=== PATIENT | female | born 1975 | race Caucasian/White ===

== ENCOUNTER 2021-04-30 09:32 | Outpatient (REF) | payer MEDICARE, OTHER, SELFPAY ==
[2021-04-30 10:49] LABS: Appearance Urine HAZY; Color Urine STRAW; Glucose Urine UA NEG (NEG); Leukocyte Esterase Urine NEG (NEG); Nitrite Urine NEG (NEG); PH 6.5 (5.0-8.0); Urine Blood NEG (NEG); Urine Ketones NEG (NEG); Urine Protein NEG (NEG-TRACE)
[2021-04-30 11:01] LABS: Lithium 0.55 mmol/L (0.60-1.20)
[2021-04-30 11:43] LABS: Anion Gap 11 (12-20); Blood Urea Nitrogen 9 mg/dL (9-16); Calcium 9.9 mg/dL (8.4-10.2); Carbon Dioxide 20 mmol/L (22-29); Chloride 115 mmol/L (96-108); Estimated Glomerular Filt Rate > 60; Glucose Random 84 mg/dL (60-115); Potassium 4.7 mmol/L (3.3-5.1); Sodium 141 mmol/L (135-145)
[2021-04-30 11:51] LABS: Thyroid Stimulating Hormone 2.09 uIU/mL (0.32-4.0)
== END 2021-04-30 09:33 | disposition home or self-care (01) ==
LOC: HO.LAB 09:32
PROVIDERS: PCP Internal Medicine; Visit Provider Psychiatry & Neurology Psychiatry
DX: F31.30 Bipolar disorder, current episode depressed, mild or moderate severity, unspecified (principal); Z79.899 Other long term (current) drug therapy
CPT/HCPCS: 36415; 80048; 80178; 81003; 84443

== ENCOUNTER 2021-06-07 15:52 | Inpatient (IN) | payer MEDICARE, OTHER, SELFPAY ==
[2021-06-07 16:09] VITALS: BP 146/84; PULSE 84; RESP 18; TEMP 36.6; O2SAT 98; BMI 26.4
--- NOTE | 2021-06-07 16:52 | ED.PSYCH ---
HPI - Psych General Chief Complaint: Psychiatric Symptoms Stated Complaint: bi polar/crisis Time Seen by Provider: 06/07/21 18:58 Source: patient Mode of arrival: ambulatory Limitations: no limitations History of Present Illness HPI Narrative: 45-year-old female presents for crisis evaluation. States that she feels her bipolar disorder is out of control. She has been taking her medications, but the intrusive thoughts and suicidal ideation is scaring her. She does belong to partial program, partial program referred her to the emergency department. MD complaint: suicidal ideation, feels depressed and anxiety Onset (ago): day(s) Duration: constant History of same: Yes Relieving factors: none Associated psychiatric symptoms: depression, suicidal ideation and racing thoughts Associated symptoms: nausea Treatments prior to arrival: none If self harm: admits thoughts of self harm and has plan Related Data Home Medications Medication Instructions Recorded Confirmed clonazepam 0.5 mg tablet 1 tab PO BID PRN 06/07/21 06/07/21 lamotrigine 200 mg tablet 1 tab PO BID 06/07/21 06/07/21 lithium carbonate 300 mg 2 tab PO BID 06/07/21 06/07/21 tablet,extended release meclizine 25 mg tablet 1 - 2 tab PO TID PRN 06/07/21 06/07/21 risperidone 1 mg tablet 1 tab PO BEDTIME 06/07/21 06/07/21 Allergies Allergy/AdvReac Type Severity Reaction Status Date / Time No Known Allergies Allergy Verified 06/07/21 16:53 Review of Systems Review of Systems: Constitutional: No Fever, No Chills ENT/Mouth: No Ear Pain, No Nasal Congestion, No sore throat Eyes: No Eye Pain, No Swelling, No Redness Cardiovascular: No Chest Pain, No SOB Respiratory: No Cough, No Sputum, No Dyspnea Gastrointestinal: Positive Nausea, No Vomiting, No Diarrhea, No Hematochezia, No Melena Genitourinary: No Dysuria, No Urinary Frequency, No Hematuria Musculoskeletal: No Myalgias Skin: No Skin Lesions, No rash Neuro: No Weakness, No Numbness, No Paresthesias, No Dizziness, No Headache Psych: positive Anxiety, positive Depression, positive SI Heme/Lymph: No Lymphadenopathy Endocrine: No Polyuria, No Polydipsia Yes all other systems are reviewed and are negative PMFSH Past Medical History Attestation statement: The following information was validated with the patient. Source: old records reviewed Medical History Bipolar 1 disorder Social History Social History Advance Directives: No Advance Directives Information Provided: No Healthcare Proxy: No Guardian: No Physical Exam Vital Signs: Vital Signs: Last Vital Signs Temp 97.8 F 06/07/21 16:09 Pulse 84 06/07/21 16:09 Resp 18 06/07/21 16:09 BP 146/84 H 06/07/21 16:09 Pulse Ox 98 06/07/21 16:09 BMI result Body Mass Index 26.4 Appearance: Alert. Oriented X3. Moderate psychiatric distress. Eyes: Pupils equal, round and reactive to light. Sclera nonicteric. ENT: Pharynx normal. Moist mucous membranes. Neck: Normal inspection. Neck supple. CVS: Normal heart rate and rhythm. Pulses normal. Respiratory: No respiratory distress. Breath sounds normal. Abdomen: Soft and nontender. Skin: Skin warm and dry. Normal skin color. Normal skin turgor. Extremities: Gait well-balanced well coordinated. Neuro: No motor deficit. No sensory deficit. Cranial nerves 2-12 intact. Course Course Course Narrative: 45-year-old female presents for suicidal ideation, manic behavior, intrusive suicidal thoughts, hypersexuality, impulsive purchasing. Patient states that she is afraid of herself and what she might do. She did discuss her feelings and thoughts with outpatient partial program and was referred to the emergency department evaluation. Will order crisis consult, labs, and COVID testing. Patient did state that her lithium has been titrated down because of dizziness. She did have an MRI last week which was negative for acute findings with the exception of an aneurysm. 18:33 care team consult complete. Plan is for voluntary admission. Patient is medically cleared. Physician observation started at this time. MDM - Psych Differential Diagnosis Differential diagnosis: Likely acute psychosis, suicidal ideation, bipolar disorder, depression, drug-induced psychotic disorder, acute anxiety, post-traumatic stress disorder and mood disorder Medical Records Attestation: I reviewed the patient's medical records. Lab Data Attestation: I reviewed the patient's lab results. Result diagrams: 06/07/21 17:39 04/26/22 17:39 Labs: Lab Results 06/07/21 06/07/21 06/07/21 Range/Units 17:28 17:28 17:28 WBC (4.8-10.8) X10*3/uL RBC (4.20-5.50) X10*6/uL Hgb (12.0-16.0) g/dl Hct (37.0-47.0) % MCV (80.0-98.0) fL MCH (27.0-33.0) pg MCHC (31.0-35.0) g/dl RDW (11.0-16.0) % Plt Count (160-400) X10*3/uL MPV (9.4-12.3) fL Immature Gran % (Auto) (0.0-0.4) % Neut % (Auto) (45-73) % Lymph % (Auto) (20-40) % [place] % (Auto) (2-11) % Eos % (Auto) (0-4) % Baso % (Auto) (0-2) % Lymph # (Auto) (1.2-4.9) X10*3/uL [place] # (Auto) (0.1-1.2) X10*3/uL Eos # (Auto) (0.0-0.4) X10*3/uL Baso # (Auto) (0.0-0.2) X10*3/uL Abs Immat Gran (auto) (0.00-0.03) X10*3/uL Absolute Neuts (auto) (2.0-8.3) x10*3/uL Absolute Nucleated RBC (0.0-0.012) X10*3/uL Nucleated RBC % (auto) (0.0-0.2) /100WBC Sodium (135-145) mmol/L Potassium (3.3-5.1) mmol/L Chloride (96-108) mmol/L Carbon Dioxide (22-29) mmol/L Anion Gap (12-20) BUN (9-16) mg/dL Creatinine (0.5-1.4) mg/dL Estim Creat Clear Calc Estimated GFR Random Glucose (60-115) mg/dL Calcium (8.4-10.2) mg/dL Total Bilirubin (0.0-1.0) mg/dL AST (5-31) U/L ALT (0-31) U/L Alkaline Phosphatase (39-117) U/L Total Protein (6.5-8.0) g/dL Albumin (3.5-5.0) g/dL Urine Color YELLOW Urine Appearance CLEAR Urine pH 6.0 (5.0-8.0) Ur Specific [place] 1.015 (1.005-1.025) Urine Protein NEG (NEG-TRACE) MG/DL Urine Glucose (UA) NEG (NEG) MG/DL Urine Ketones NEG (NEG) MG/DL Urine Blood NEG (NEG) Urine Nitrite NEG (NEG) Ur Leukocyte Esterase NEG (NEG) Urine Opiates Screen Not Detected (Not Detect) Urine Fentanyl Screen Not Detected (Not Detect) Ur Barbiturates Screen Not Detected (Not Detect) Ur Phencyclidine Scrn Not Detected (Not Detect) Ur Amphetamines Screen Not Detected (Not Detect) U Benzodiazepines Scrn Not Detected (Not Detect) [place] (0.60-1.20) mmol/L Urine Cocaine Screen Not Detected (Not Detect) U Marijuana (THC) Screen Not Detected (Not Detect) Ethyl Alcohol mg/dL COVID-19 (CAR) Negative (Negative) COVID-19 Clin Com See Note 06/07/21 06/07/21 06/07/21 Range/Units 17:39 17:39 17:39 WBC 8.7 (4.8-10.8) X10*3/uL RBC 4.59 (4.20-5.50) X10*6/uL Hgb 12.9 (12.0-16.0) g/dl Hct 40.6 (37.0-47.0) % MCV 88.5 (80.0-98.0) fL MCH 28.1 (27.0-33.0) pg MCHC 31.8 (31.0-35.0) g/dl RDW 13.5 (11.0-16.0) % Plt Count 300 (160-400) X10*3/uL MPV 10.0 (9.4-12.3) fL Immature Gran % (Auto) 0.3 (0.0-0.4) % Neut % (Auto) 64.9 (45-73) % Lymph % (Auto) 24.1 (20-40) % [place] % (Auto) 7.5 (2-11) % Eos % (Auto) 2.3 (0-4) % Baso % (Auto) 0.9 (0-2) % Lymph # (Auto) 2.1 (1.2-4.9) X10*3/uL [place] # (Auto) 0.7 (0.1-1.2) X10*3/uL Eos # (Auto) 0.2 (0.0-0.4) X10*3/uL Baso # (Auto) 0.1 (0.0-0.2) X10*3/uL Abs Immat Gran (auto) 0.03 (0.00-0.03) X10*3/uL Absolute Neuts (auto) 5.6 (2.0-8.3) x10*3/uL Absolute Nucleated RBC 0.000 (0.0-0.012) X10*3/uL Nucleated RBC % (auto) 0.0 (0.0-0.2) /100WBC Sodium 139 (135-145) mmol/L Potassium 4.3 (3.3-5.1) mmol/L Chloride 114 H (96-108) mmol/L Carbon Dioxide 19 L (22-29) mmol/L Anion Gap 10 L (12-20) BUN 12 (9-16) mg/dL Creatinine 0.85 (0.5-1.4) mg/dL Estim Creat Clear Calc 81.3 Estimated GFR > 60 Random Glucose 110 (60-115) mg/dL Calcium 9.5 (8.4-10.2) mg/dL Total Bilirubin 0.2 (0.0-1.0) mg/dL AST 14 (5-31) U/L ALT 10 (0-31) U/L Alkaline Phosphatase 57 (39-117) U/L Total Protein 6.6 (6.5-8.0) g/dL Albumin 3.9 (3.5-5.0) g/dL Urine Color Urine Appearance Urine pH (5.0-8.0) Ur Specific [place] (1.005-1.025) Urine Protein (NEG-TRACE) MG/DL Urine Glucose (UA) (NEG) MG/DL Urine Ketones (NEG) MG/DL Urine Blood (NEG) Urine Nitrite (NEG) Ur Leukocyte Esterase (NEG) Urine Opiates Screen (Not Detect) Urine Fentanyl Screen (Not Detect) Ur Barbiturates Screen (Not Detect) Ur Phencyclidine Scrn (Not Detect) Ur Amphetamines Screen (Not Detect) U Benzodiazepines Scrn (Not Detect) [place] 0.25 L (0.60-1.20) mmol/L Urine Cocaine Screen (Not Detect) U Marijuana (THC) Screen (Not Detect) Ethyl Alcohol mg/dL COVID-19 (CAR) (Negative) COVID-19 Clin Com 06/07/21 Range/Units 17:39 WBC (4.8-10.8) X10*3/uL RBC (4.20-5.50) X10*6/uL Hgb (12.0-16.0) g/dl Hct (37.0-47.0) % MCV (80.0-98.0) fL MCH (27.0-33.0) pg MCHC (31.0-35.0) g/dl RDW (11.0-16.0) % Plt Count (160-400) X10*3/uL MPV (9.4-12.3) fL Immature Gran % (Auto) (0.0-0.4) % Neut % (Auto) (45-73) % Lymph % (Auto) (20-40) % [place] % (Auto) (2-11) % Eos % (Auto) (0-4) % Baso % (Auto) (0-2) % Lymph # (Auto) (1.2-4.9) X10*3/uL [place] # (Auto) (0.1-1.2) X10*3/uL Eos # (Auto) (0.0-0.4) X10*3/uL Baso # (Auto) (0.0-0.2) X10*3/uL Abs Immat Gran (auto) (0.00-0.03) X10*3/uL Absolute Neuts (auto) (2.0-8.3) x10*3/uL Absolute Nucleated RBC (0.0-0.012) X10*3/uL Nucleated RBC % (auto) (0.0-0.2) /100WBC Sodium (135-145) mmol/L Potassium (3.3-5.1) mmol/L Chloride (96-108) mmol/L Carbon Dioxide (22-29) mmol/L Anion Gap (12-20) BUN (9-16) mg/dL Creatinine (0.5-1.4) mg/dL Estim Creat Clear Calc Estimated GFR Random Glucose (60-115) mg/dL Calcium (8.4-10.2) mg/dL Total Bilirubin (0.0-1.0) mg/dL AST (5-31) U/L ALT (0-31) U/L Alkaline Phosphatase (39-117) U/L Total Protein (6.5-8.0) g/dL Albumin (3.5-5.0) g/dL Urine Color Urine Appearance Urine pH (5.0-8.0) Ur Specific [place] (1.005-1.025) Urine Protein (NEG-TRACE) MG/DL Urine Glucose (UA) (NEG) MG/DL Urine Ketones (NEG) MG/DL Urine Blood (NEG) Urine Nitrite (NEG) Ur Leukocyte Esterase (NEG) Urine Opiates Screen (Not Detect) Urine Fentanyl Screen (Not Detect) Ur Barbiturates Screen (Not Detect) Ur Phencyclidine Scrn (Not Detect) Ur Amphetamines Screen (Not Detect) U Benzodiazepines Scrn (Not Detect) [place] (0.60-1.20) mmol/L Urine Cocaine Screen (Not Detect) U Marijuana (THC) Screen (Not Detect) Ethyl Alcohol < 10 mg/dL COVID-19 (CAR) (Negative) COVID-19 Clin Com Discharge Plan Discharge Clinical Impression: Acute psychosis, Bipolar disorder Patient Disposition: Still a Patient Prescriptions: No Action lamotrigine 200 mg tablet 1 tab PO BID 0RF lithium carbonate 300 mg tablet extended release 2 tab PO BID 0RF clonazepam 0.5 mg tablet 1 tab PO BID PRN (Reason: Anxiety) 0RF meclizine 25 mg tablet 1 - 2 tab PO TID PRN (Reason: Dizziness Or Vertigo) 0RF risperidone 1 mg tablet 1 tab PO BEDTIME 0RF
[2021-06-07] MEDS: LORazepam 1 MG TABLET PO (17:31)
[2021-06-07 17:43] LABS: MANUAL DIFF FLAG NO
[2021-06-07 17:45] LABS: Basophils Absolute Auto 0.1 X10*3/uL (0.0-0.2); Basophils Percent Auto 0.9 % (0-2); Eosinophils Absolute Auto 0.2 X10*3/uL (0.0-0.4); Eosinophils Percent Auto 2.3 % (0-4); Hematocrit 40.6 % (37.0-47.0); Hemoglobin 12.9 g/dl (12.0-16.0); Imm Gran Abs Auto 0.03 X10*3/uL (0.00-0.03); Imm Gran Pct Auto 0.3 % (0.0-0.4); Lymphocytes Absolute Auto 2.1 X10*3/uL (1.2-4.9); Lymphocytes Percent Auto 24.1 % (20-40); Mean Corpuscular HGB Conc 31.8 g/dl (31.0-35.0); Mean Corpuscular Hemoglobin 28.1 pg (27.0-33.0); Mean Corpuscular Volume 88.5 fL (80.0-98.0); Monocytes Absolute Auto 0.7 X10*3/uL (0.1-1.2); Monocytes Percent Auto 7.5 % (2-11); Neutrophils Absolute Auto 5.6 x10*3/uL (2.0-8.3); Neutrophils Percent Auto 64.9 % (45-73); Platelet Count 300 X10*3/uL (160-400); Red Blood Count 4.59 X10*6/uL (4.20-5.50); Red Cell Distribution Width 13.5 % (11.0-16.0); White Blood Count 8.7 X10*3/uL (4.8-10.8)
[2021-06-07 17:52] LABS: Lithium 0.25 mmol/L (0.60-1.20)
[2021-06-07 17:52] LABS: Amphetamine Screen Urine Not Detected (Not Detect); Appearance Urine CLEAR; Barbiturates, Urine Not Detected (Not Detect); Benzodiazepines Screen Urine Not Detected (Not Detect); Cannabinoid Screen Urine Not Detected (Not Detect); Cocaine Screen Urine Not Detected (Not Detect); Color Urine YELLOW; Fentanyl, urine Not Detected (Not Detect); Glucose Urine UA NEG (NEG); Leukocyte Esterase Urine NEG (NEG); Nitrite Urine NEG (NEG); Opiate Screen Urine Not Detected (Not Detect); Phencyclidine Screen Urine Not Detected (Not Detect); Specific Gravity - Urine 1.015 (1.005-1.025); Urine Blood NEG (NEG); Urine Ketones NEG (NEG); Urine Protein NEG (NEG-TRACE)
[2021-06-07 17:56] LABS: COVID-19 Test Negative (Negative)
[2021-06-07 17:56] LABS: Ethanol < 10 mg/dL
[2021-06-07 18:00] LABS: Alanine Aminotransferase 10 U/L (0-31); Albumin Level 3.9 g/dL (3.5-5.0); Alkaline Phosphatase 57 U/L (39-117); Anion Gap 10 (12-20); Aspartate Amino Transferase 14 U/L (5-31); Bilirubin Total 0.2 mg/dL (0.0-1.0); Blood Urea Nitrogen 12 mg/dL (9-16); Calcium 9.5 mg/dL (8.4-10.2); Carbon Dioxide 19 mmol/L (22-29); Chloride 114 mmol/L (96-108); Creatinine Clr Calc Pharmacy 81.3; Estimated Glomerular Filt Rate > 60; Glucose Random 110 mg/dL (60-115); Potassium 4.3 mmol/L (3.3-5.1); Sodium 139 mmol/L (135-145); Total Protein 6.6 g/dL (6.5-8.0)
--- NOTE | 2021-06-07 21:08 | MHC.CARE ---
CARE team evaluated pt, dispo for inpt psychiatric admission, pt will be admitted to on 06/08
[2021-06-07] MEDS: clonazePAM 0.5 MG TABLET PO (22:38)
[2021-06-07] MEDS: Lithium Carbonate ER 300 MG TABLET.ER 600 MG PO (22:39)
[2021-06-07] MEDS: risperiDONE 1 MG TABLET PO (22:39)
[2021-06-07] MEDS: lamoTRIgine 100 MG TABLET 200 MG PO (22:39)
[2021-06-08 05:50] VITALS: BP 106/64; PULSE 60; RESP 20; TEMP 36.6; O2SAT 95
--- NOTE | 2021-06-08 06:40 | PC.NURSE ---
Patient slept through the night, no distress observe/reported, behavior pleasant, medication compliant except refused partial dose of lithium and Lamictal, disposition per [facility] is voluntary inpatient bed search, VSS, will continue to monitor.
--- NOTE | 2021-06-08 07:00 | PC.NURSE ---
patient appears to remain asleep respirations are even and unlabored patient appears in no distress
[2021-06-08] MEDS: lamoTRIgine 100 MG TABLET 200 MG PO ×2 (09:09→20:21)
--- NOTE | 2021-06-08 10:53 | PHA.MEDREC ---
Pharmacy Consult ? Medication Reconciliation Pharmacy has completed the medication reconciliation. No remarkable issues. Velia Mcadams, TurnerD
--- NOTE | 2021-06-08 11:29 | MHC.CARE ---
CARE team called [employer] insurance for auth. Approved 6 days starting today with last covered day 06/13/21 review with Janee on 06/13 at [id number] with auth [id number]. CARE presented pt with CV and she signed in seeking placement on voluntary basis. Plan is for pt to be admitted to .
--- NOTE | 2021-06-08 15:40 | PC.NURSE ---
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
[2021-06-08 16:07] VITALS: BP 113/76; PULSE 99; RESP 18; TEMP 37.2; O2SAT 100
[2021-06-08 17:32] VITALS: BP 125/84; PULSE 72; RESP 16; TEMP 37.6; O2SAT 99; BMI 26.1
[2021-06-08 18:00] VITALS: BP 125/84; PULSE 72; RESP 16; TEMP 37.6; O2SAT 99
[2021-06-08 18:25] LABS: Urine Pregnancy NEGATIVE (NEGATIVE)
[2021-06-08 18:26] LABS: UPreg QC Valid YES
--- NOTE | 2021-06-08 18:30 | PC.ADMIT ---
Pt is a 45y/o female admitted on CV for SI. Pt reports feeling intrusive suicidal thoughts and therefore afraid something bad might happen. She endorses suicidal ideation without a specific plan, disrupted sleep and appetite, hyper-sexuality, and impulse spending. Pt is alert and oriented X4, VSS, Covid negative, Tox screen negative. Pt enorsed depression with dysthymic mood and congruent affect. Speech is slightly pressured. Pt has hx of 1 suicide attempt, 1 manic episode, 4 inpt psych admit, and 4 rounds of PHP. She has outpt providers and has been undergoing med changes since July 2020 after developing tardive dyskenesia.
[2021-06-08] MEDS: risperiDONE 1 MG TABLET PO (20:21)
[2021-06-08] MEDS: Topiramate 25 MG TABLET 150 MG PO (20:21)
[2021-06-08] MEDS: Lithium Carbonate ER 300 MG TABLET.ER 600 MG PO (20:21)
[2021-06-08] MEDS: clonazePAM 0.5 MG TABLET PO (20:40)
--- NOTE | 2021-06-09 | ECG_ITS ---
Test Reason : MEDICATION CLEARANCE Blood Pressure : / mmHG Vent. Rate : 080 BPM Atrial Rate : 080 BPM P-R Int : 164 ms QRS Dur : 092 ms QT Int : 380 ms P-R-T Axes : 053 025 036 degrees QTc Int : 438 ms Normal sinus rhythm Nonspecific T wave abnormality Abnormal ECG No previous ECGs available Referred By: Maricruz Fatima Electronically Signed By:VERO BURKETT
[2021-06-09 06:00] VITALS: BP 113/73; PULSE 54; RESP 15; TEMP 37.1; O2SAT 100
[2021-06-09 09:12] LABS: Estimated Average Glucose 91 mg/dL; Hemoglobin A1c % 4.8 %
[2021-06-09] MEDS: Topiramate 25 MG TABLET 150 MG PO ×2 (09:26→20:44)
[2021-06-09] MEDS: lamoTRIgine 100 MG TABLET 200 MG PO ×2 (09:26→20:44)
[2021-06-09] MEDS: Lithium Carbonate ER 300 MG TABLET.ER 600 MG PO (09:26)
[2021-06-09 10:19] LABS: Cholesterol 230 mg/dL; HDL Cholesterol 56 mg/dL; LDL Cholesterol Calculated 151 mg/dl; Triglycerides 118 mg/dL
--- NOTE | 2021-06-09 11:04 | HO.PSYADMNOT ---
HPI Date of Service: 06/09/21 Chief Complaint: mansi Sources of Information: patient interviewed, chart reviewed and crisis/core team assessment reviewed HPI Subjective Notes: Conditional Voluntary Narrative: Ms. Bourgeois is a 45 year-old woman with hx of Bipolar. She was referred by PHP due to increase SI, depressed mood in the past 2 weeks. Mrs. Bourgeois reports she had been fairly stable on geodon but experience TD, which was slowly tappered off. She started lithium back in July of 2020. She reports sporadic episodes of lithium which she suspect could be related to lithium given that she has had work up by PCP. She has been on combination of lamictal and topamax (this one moslty for migraines). In the ED utox is negative. On the unit. Ms. Bourgeois reports that around mid February of this year she started having more manic symptoms- overspending, hypersexuality (which she reports significant problem for her when manic), decreased need for sleep, irritability. These symptoms have now resolved but pt then experienced depressed mood, suicidal ideation. Pt is worried about medication changes as she does not want to experience TD again. She also worries about weight gain. She reports weight gained of 20 Lbs with lithium. No VH/AH. No overt delusional content reported. Past Psychiatric History: Inpt: 4 prior OP: Dr. Wheeler at [facility] Past med trials: geodon (TD), topamax, lamictal, lithium, abilify (akathisia), latuda (increase SI) Medical Evaluation Reviewed: Yes [facility] Medical History Bipolar 1 disorder Family History: mother depression Social History: lives alone. She has graduate degree in communication. 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 Has 2 sons, youngest living with his father. Substance History: none Diagnostics Vital Signs (24Hr): Vital Signs - 24 hr 06/08/21 16:07 06/08/21 17:32 06/08/21 18:00 Temperature 99 F 99.6 F 99.6 F Pulse Rate 99 72 72 Respiratory Rate 18 16 16 Blood Pressure 113/76 125/84 125/84 Pulse Oximetry 100 99 99 06/09/21 06:00 Temperature 98.7 F Pulse Rate 54 Respiratory Rate 15 Blood Pressure 113/73 Pulse Oximetry 100 BMI result Body Mass Index 26.1 Labs Results: 06/07/21 17:39 06/07/21 17:39 Labs: Laboratory Results - last 48 hr 06/07/21 06/07/21 06/07/21 17:28 17:28 17:28 WBC RBC Hgb Hct MCV MCH MCHC RDW Plt Count MPV Immature Gran % (Auto) Neut % (Auto) Lymph % (Auto) [place] % (Auto) Eos % (Auto) Baso % (Auto) Lymph # (Auto) [place] # (Auto) Eos # (Auto) Baso # (Auto) Abs Immat Gran (auto) Absolute Neuts (auto) Absolute Nucleated RBC Nucleated RBC % (auto) Sodium Potassium Chloride Carbon Dioxide Anion Gap BUN Creatinine Estim Creat Clear Calc Estimated GFR Random Glucose Estimat Average Glucose Hemoglobin A1c % Calcium Total Bilirubin AST ALT Alkaline Phosphatase Total Protein Albumin Triglycerides Cholesterol LDL Cholesterol, Calc HDL Cholesterol TSH Urine Color YELLOW Urine Appearance CLEAR Urine pH 6.0 Ur Specific [place] 1.015 Urine Protein NEG Urine Glucose (UA) NEG Urine Ketones NEG Urine Blood NEG Urine Nitrite NEG Ur Leukocyte Esterase NEG Urine Test Urine Opiates Screen Not Detected Urine Fentanyl Screen Not Detected Ur Barbiturates Screen Not Detected Ur Phencyclidine Scrn Not Detected Ur Amphetamines Screen Not Detected U Benzodiazepines Scrn Not Detected [place] Urine Cocaine Screen Not Detected U Marijuana (THC) Screen Not Detected Ethyl Alcohol COVID-19 (CAR) Negative COVID-19 Clin Com See Note 06/07/21 06/07/21 06/07/21 17:39 17:39 17:39 WBC 8.7 RBC 4.59 Hgb 12.9 Hct 40.6 MCV 88.5 MCH 28.1 MCHC 31.8 RDW 13.5 Plt Count 300 MPV 10.0 Immature Gran % (Auto) 0.3 Neut % (Auto) 64.9 Lymph % (Auto) 24.1 [place] % (Auto) 7.5 Eos % (Auto) 2.3 Baso % (Auto) 0.9 Lymph # (Auto) 2.1 [place] # (Auto) 0.7 Eos # (Auto) 0.2 Baso # (Auto) 0.1 Abs Immat Gran (auto) 0.03 Absolute Neuts (auto) 5.6 Absolute Nucleated RBC 0.000 Nucleated RBC % (auto) 0.0 Sodium 139 Potassium 4.3 Chloride 114 H Carbon Dioxide 19 L Anion Gap 10 L BUN 12 Creatinine 0.85 Estim Creat Clear Calc 81.3 Estimated GFR > 60 Random Glucose 110 Estimat Average Glucose Hemoglobin A1c % Calcium 9.5 Total Bilirubin 0.2 AST 14 ALT 10 Alkaline Phosphatase 57 Total Protein 6.6 Albumin 3.9 Triglycerides Cholesterol LDL Cholesterol, Calc HDL Cholesterol TSH Urine Color Urine Appearance Urine pH Ur Specific [place] Urine Protein Urine Glucose (UA) Urine Ketones Urine Blood Urine Nitrite Ur Leukocyte Esterase Urine Test Urine Opiates Screen Urine Fentanyl Screen Ur Barbiturates Screen Ur Phencyclidine Scrn Ur Amphetamines Screen U Benzodiazepines Scrn [place] 0.25 L Urine Cocaine Screen U Marijuana (THC) Screen Ethyl Alcohol COVID-19 (CAR) COVID-19 [facility] 06/07/21 06/08/21 06/09/21 17:39 17:50 08:21 WBC RBC Hgb Hct MCV MCH MCHC RDW Plt Count MPV Immature Gran % (Auto) Neut % (Auto) Lymph % (Auto) [place] % (Auto) Eos % (Auto) Baso % (Auto) Lymph # (Auto) [place] # (Auto) Eos # (Auto) Baso # (Auto) Abs Immat Gran (auto) Absolute Neuts (auto) Absolute Nucleated RBC Nucleated RBC % (auto) Sodium Potassium Chloride Carbon Dioxide Anion Gap BUN Creatinine Estim Creat Clear Calc Estimated GFR Random Glucose Estimat Average Glucose 91 Hemoglobin A1c % 4.8 Calcium Total Bilirubin AST ALT Alkaline Phosphatase Total Protein Albumin Triglycerides Cholesterol LDL Cholesterol, Calc HDL Cholesterol TSH Urine Color Urine Appearance Urine pH Ur Specific [place] Urine Protein Urine Glucose (UA) Urine Ketones Urine Blood Urine Nitrite Ur Leukocyte Esterase Urine Test NEGATIVE Urine Opiates Screen Urine Fentanyl Screen Ur Barbiturates Screen Ur Phencyclidine Scrn Ur Amphetamines Screen U Benzodiazepines Scrn [place] Urine Cocaine Screen U Marijuana (THC) Screen Ethyl Alcohol < 10 COVID-19 (CAR) COVID-19 [facility] 06/09/21 08:21 WBC RBC Hgb Hct MCV MCH MCHC RDW Plt Count MPV Immature Gran % (Auto) Neut % (Auto) Lymph % (Auto) [place] % (Auto) Eos % (Auto) Baso % (Auto) Lymph # (Auto) [place] # (Auto) Eos # (Auto) Baso # (Auto) Abs Immat Gran (auto) Absolute Neuts (auto) Absolute Nucleated RBC Nucleated RBC % (auto) Sodium Potassium Chloride Carbon Dioxide Anion Gap BUN Creatinine Estim Creat Clear Calc Estimated GFR Random Glucose Estimat Average Glucose Hemoglobin A1c % Calcium Total Bilirubin AST ALT Alkaline Phosphatase Total Protein Albumin Triglycerides 118 Cholesterol 230 LDL Cholesterol, Calc 151 HDL Cholesterol 56 TSH 1.50 Urine Color Urine Appearance Urine pH Ur Specific [place] Urine Protein Urine Glucose (UA) Urine Ketones Urine Blood Urine Nitrite Ur Leukocyte Esterase Urine Test Urine Opiates Screen Urine Fentanyl Screen Ur Barbiturates Screen Ur Phencyclidine Scrn Ur Amphetamines Screen U Benzodiazepines Scrn [place] Urine Cocaine Screen U Marijuana (THC) Screen Ethyl Alcohol COVID-19 (CAR) COVID-19 Clin Com Meds/Allergies Meds Home Medications Acetaminophen (Acetaminophen 325 Mg Tablet) 650 mg PO Q6H PRN PRN Reason: Headache/Pain Mild Scale (1-3) Last Admin: 06/10/21 14:02 Dose: 650 mg Documented by: Al Hydroxide/Mg Hydroxide (Magnesium Hydrox/Alum Hydrox 30 Ml Oral.Susp) 30 ml PO Q6H PRN PRN Reason: Heartburn/Nausea Carbamazepine (Carbamazepine 200 Mg Tablet) 200 mg PO BID [facility] Last Admin: 06/12/21 20:20 Dose: 200 mg Documented by: Diphenhydramine HCl (Diphenhydramine Hcl 25 Mg Tablet) 50 mg PO Q4H PRN PRN Reason: agitation Hydroxyzine HCl (Hydroxyzine Hcl 25 Mg Tablet) 25 mg PO QID PRN PRN Reason: Anxiety Lamotrigine (Lamotrigine 100 Mg Tablet) 200 mg PO DAILY [facility] Last Admin: 06/12/21 08:24 Dose: 200 mg Documented by: Lorazepam (Lorazepam 1 Mg Tablet) 1 mg PO BEDTIME [facility] Last Admin: 06/12/21 20:20 Dose: 1 mg Documented by: Lorazepam (Lorazepam 0.5 Mg Tablet) 0.5 mg PO Q6H PRN PRN Reason: Anxiety Last Admin: 06/12/21 09:00 Dose: 0.5 mg Documented by: Magnesium Hydroxide (Milk Of Magnesia 30 Ml Oral.Susp) 30 ml PO DAILY PRN PRN Reason: Constipation Meclizine HCl (Meclizine Hcl 25 Mg Tablet) 25 mg PO TID PRN PRN Reason: Dizziness Or Vertigo Last Admin: 06/12/21 11:43 Dose: 25 mg Documented by: Nicotine Polacrilex (Nicotine Polacrilex 2 Mg Gum) 4 mg BUCCAL Q2H PRN PRN Reason: Nicotine Cravings Olanzapine (Olanzapine 5 Mg Tablet) 5 mg PO BEDTIME [facility] Last Admin: 06/12/21 20:21 Dose: 5 mg Documented by: Sodium Chloride (Sodium Chloride 0.65 % Nasal 44 Ml Sprbtl) 1 spray NOSTRIL-B Q4H PRN PRN Reason: dry nostrils Last Admin: 06/12/21 08:53 Dose: 1 spray Documented by: Topiramate (Topiramate 25 Mg Tablet) 50 mg PO BID [facility] Last Admin: 06/12/21 20:21 Dose: 50 mg Documented by: Trazodone HCl (Trazodone Hcl 50 Mg Tablet) 50 mg PO BEDTIME PRN PRN Reason: Insomnia Valacyclovir HCl (Valacyclovir Hcl 500 Mg Tablet) 500 mg PO DAILY [facility] Last Admin: 06/12/21 08:25 Dose: 500 mg Documented by: Allergies Allergies Allergy/AdvReac Type Severity Reaction Status Date / Time No Known Allergies Allergy Verified 06/07/21 16:53 Mental Status Exam Mental Status Exam Narrative: Appearance: casually groomed, fair hygiene in NAD Behavior:cooperative psychomotor:no agitation or retardation noted, slight perioral involuntary movement Speech:clear, normal rate/rhythm/volume, spontaneous Thought process:linear Thought content:no psychosis or delusions, feeling depressed, worried about medication side effects. Mood: depressed Affect: blunted SI:passive HI:none VH/AH:none Delusions:none Insight/judgment:fair x 2. Memory/cog: alert, oriented x 3. grossly intact to conversational testing. Assessment & Plan Assessment & Plan (1) Bipolar 1 disorder, depressed, severe: Status: Acute Code(s): F31.4 - Bipolar disorder, current episode depressed, severe, without psychotic features Plan Ms. Bourgeois is a 45 year-old woman with hx of Bipolar Disorder who earlier this year experience symptoms of mansi/mixed episode, now presents with depression and suicidal ideation. She has had multiple recent med trials. She did well on geodon but developed TD, which partially resolved when geodon d/c. She was started on lithium last year on 07/2020 but has been having episodes of vertigo which after medical work up there is possibility that may be related to lithium. She is also on 2 other mood stabilizer, one mostly for migraines- topamax and lamictal that pt has reported has been helpful for depression. We discussed risks, benefits and alternative treatment options. She agrees to start low dose of olanzapine, for mood. consider starting carbamazepine as main mood stabilizer and d/c topamax gradually. Carbamazepine may have positive therapeutic effect on migraines. PLAN: 1. admit to M5, cv 15 2. will d/c risperidone, higher risk of TD, than low dose of olanzapine 3. lower topamax from 150mg po BID, to 100mg po BID 4. start carbamazepine 200mg po BID- titrate. 5. obtain collateral infor 6. aftercare planning. Patient educated on: diagnosis and medication risk/benefits Informed Consent: understands Reason for continued inpatient stay Substantial Risk for: inability to function
[2021-06-09] MEDS: Acetaminophen 325 MG TABLET 650 MG PO ×2 (15:23→20:43)
[2021-06-09 17:46] VITALS: BP 108/69; PULSE 60; RESP 15; TEMP 37.3; O2SAT 100
[2021-06-09] MEDS: risperiDONE 1 MG TABLET PO (20:44)
[2021-06-09] MEDS: clonazePAM 0.5 MG TABLET PO (20:44)
[2021-06-10 06:00] VITALS: BP 117/71; PULSE 69; RESP 16; TEMP 36.9; O2SAT 99
[2021-06-10] MEDS: lamoTRIgine 100 MG TABLET 200 MG PO (08:34)
[2021-06-10] MEDS: Lithium Carbonate ER 300 MG TABLET.ER 600 MG PO (08:35)
[2021-06-10] MEDS: Topiramate 25 MG TABLET 150 MG PO (08:35)
--- NOTE | 2021-06-10 12:45 | HO.PSYCHPN ---
Subjective Subjective Date of Service: 06/10/21 Reason For Visit: mansi Subjective Notes: Conditional Voluntary Interim History: Pt reports sleeping for first time in years with olanzapine. She continues to report episodes of vertigo. [place] has been d/c. She continues to endorse depressed mood, passive SI. No VH/AH. worried about side effects of medications. Medication Compliance: Yes Side effects from medications: No Review of Systems Review of Systems +Vertigo No Chest pain No diarrhea/constipation No changes in vision Yes all other systems are reviewed and are negative Constitutional: Reports no additional constitutional complaints Mental Status Exam Mental Status Exam Narrative: Appearance: casually groomed, fair hygiene in NAD Behavior:cooperative psychomotor:no agitation or retardation noted, slight perioral involuntary movement Speech:clear, normal rate/rhythm/volume, spontaneous Thought process:linear Thought content:no psychosis or delusions, feeling depressed, worried about medication side effects. Mood: depressed Affect: blunted SI:passive HI:none VH/AH:none Delusions:none Insight/judgment:fair x 2. Memory/cog: alert, oriented x 3. grossly intact to conversational testing. Diagnostics Vital Signs (24Hr): Vital Signs - 24 hr 06/12/21 16:09 06/13/21 06:00 Temperature 97.8 F 97.9 F Pulse Rate 77 69 Respiratory Rate 18 18 Blood Pressure 117/78 115/72 Pulse Oximetry 98 100 BMI result Body Mass Index 26.1 Labs Results: 06/07/21 17:39 06/07/21 17:39 Medications Medications Current Medications Acetaminophen (Acetaminophen 325 Mg Tablet) 650 mg PO Q6H PRN PRN Reason: Headache/Pain Mild Scale (1-3) Last Admin: 06/10/21 14:02 Dose: 650 mg Documented by: Al Hydroxide/Mg Hydroxide (Magnesium Hydrox/Alum Hydrox 30 Ml Oral.Susp) 30 ml PO Q6H PRN PRN Reason: Heartburn/Nausea Carbamazepine (Carbamazepine 200 Mg Tablet) 200 mg PO BID [facility] Last Admin: 06/12/21 20:20 Dose: 200 mg Documented by: Diphenhydramine HCl (Diphenhydramine Hcl 25 Mg Tablet) 50 mg PO Q4H PRN PRN Reason: agitation Hydroxyzine HCl (Hydroxyzine Hcl 25 Mg Tablet) 25 mg PO QID PRN PRN Reason: Anxiety Lamotrigine (Lamotrigine 100 Mg Tablet) 200 mg PO DAILY [facility] Last Admin: 06/12/21 08:24 Dose: 200 mg Documented by: Lorazepam (Lorazepam 1 Mg Tablet) 1 mg PO BEDTIME [facility] Last Admin: 06/12/21 20:20 Dose: 1 mg Documented by: Lorazepam (Lorazepam 0.5 Mg Tablet) 0.5 mg PO Q6H PRN PRN Reason: Anxiety Last Admin: 06/12/21 09:00 Dose: 0.5 mg Documented by: Magnesium Hydroxide (Milk Of Magnesia 30 Ml Oral.Susp) 30 ml PO DAILY PRN PRN Reason: Constipation Meclizine HCl (Meclizine Hcl 25 Mg Tablet) 25 mg PO TID PRN PRN Reason: Dizziness Or Vertigo Last Admin: 06/12/21 11:43 Dose: 25 mg Documented by: Nicotine Polacrilex (Nicotine Polacrilex 2 Mg Gum) 4 mg BUCCAL Q2H PRN PRN Reason: Nicotine Cravings Olanzapine (Olanzapine 5 Mg Tablet) 5 mg PO BEDTIME [facility] Last Admin: 06/12/21 20:21 Dose: 5 mg Documented by: Sodium Chloride (Sodium Chloride 0.65 % Nasal 44 Ml Sprbtl) 1 spray NOSTRIL-B Q4H PRN PRN Reason: dry nostrils Last Admin: 06/12/21 08:53 Dose: 1 spray Documented by: Topiramate (Topiramate 25 Mg Tablet) 50 mg PO BID [facility] Last Admin: 06/12/21 20:21 Dose: 50 mg Documented by: Trazodone HCl (Trazodone Hcl 50 Mg Tablet) 50 mg PO BEDTIME PRN PRN Reason: Insomnia Valacyclovir HCl (Valacyclovir Hcl 500 Mg Tablet) 500 mg PO DAILY [facility] Last Admin: 06/12/21 08:25 Dose: 500 mg Documented by: Allergies Allergies Allergy/AdvReac Type Severity Reaction Status Date / Time No Known Allergies Allergy Verified 06/07/21 16:53 Assessment & Plan Assessment & Plan (1) Bipolar 1 disorder, depressed, severe: Status: Acute Code(s): F31.4 - Bipolar disorder, current episode depressed, severe, without psychotic features Plan Ms. Bourgeois is a 45 year-old woman with hx of Bipolar Disorder who earlier this year experience symptoms of mansi/mixed episode, now presents with depression and suicidal ideation. She has had multiple recent med trials. She did well on geodon but developed TD, which partially resolved when geodon d/c. She was started on lithium last year on 07/2020 but has been having episodes of vertigo which after medical work up there is possibility that may be related to lithium. She is also on 2 other mood stabilizer, one mostly for migraines- topamax and lamictal that pt has reported has been helpful for depression. We discussed risks, benefits and alternative treatment options. She agrees to start low dose of olanzapine, for mood. consider starting carbamazepine as main mood stabilizer and d/c topamax gradually. Carbamazepine may have positive therapeutic effect on migraines. PLAN: 1. admit to M5, cv 15 2. will d/c risperidone, higher risk of TD, than low dose of olanzapine 3. lower topamax from 150mg po BID, to 100mg po BID 4. start carbamazepine 200mg po BID- titrate. 5. obtain collateral infor 6. aftercare planning. 06/10- decrease topamax to 50mg po BID, continue carbamazepine 200mg po BID, continue olanzapine 5mg po qhs. ativan instead of clonazepam- one scheduled dose 0.5mg po qhs. prn dose of ativan 0.5mg po q6h also for vertigo/anxious mood. I spent minutes with the patient and/or on the patient floor today, greater than?50% of which was spent counseling/coordinating care. Reason for contiued inpatient stay Substantial Risk for: harm to self
[2021-06-10] MEDS: Acetaminophen 325 MG TABLET 650 MG PO (14:02)
[2021-06-10 20:02] VITALS: BP 119/71; PULSE 92; RESP 17; TEMP 36.6; O2SAT 100
[2021-06-10] MEDS: carBAMazepine 200 MG TABLET PO (20:29)
[2021-06-10] MEDS: clonazePAM 0.5 MG TABLET PO (20:29)
[2021-06-10] MEDS: Topiramate 25 MG TABLET 100 MG PO (20:30)
[2021-06-10] MEDS: OLANZapine 5 MG TABLET PO (20:30)
[2021-06-11 06:00] VITALS: BP 111/67; PULSE 64; RESP 18; TEMP 36.8; O2SAT 100
[2021-06-11] MEDS: carBAMazepine 200 MG TABLET PO ×2 (08:45→20:51)
[2021-06-11] MEDS: Topiramate 25 MG TABLET 100 MG PO (08:45)
[2021-06-11] MEDS: lamoTRIgine 100 MG TABLET 200 MG PO (08:46)
[2021-06-11 09:50] VITALS: BP 132/79; PULSE 80; RESP 18
[2021-06-11] MEDS: Meclizine HCl 25 MG TABLET PO ×2 (10:08→11:28)
--- NOTE | 2021-06-11 10:48 | P.PNPSI_ITS ---
Subjective Subjective Date of Service: 06/11/21 Reason For Visit: mansi Subjective Notes: Conditional Voluntary Interim History: Pt continues to reports sleeping for first time in years with olanzapine. She continues to report episodes of vertigo. [place] has been d/c. She continues to endorse depressed mood, passive SI. No VH/AH. worried about side effects of medications. waiting for therapeutic response to medications. Continues to experience vertigo on and off. Medication Compliance: Yes Side effects from medications: No Review of Systems Review of Systems +Vertigo No Chest pain No diarrhea/constipation No changes in vision Yes all other systems are reviewed and are negative Constitutional: Reports no additional constitutional complaints Mental Status Exam Mental Status Exam Narrative: Appearance: casually groomed, fair hygiene in NAD Behavior:cooperative psychomotor:no agitation or retardation noted, slight perioral involuntary movement Speech:clear, normal rate/rhythm/volume, spontaneous Thought process:linear Thought content:no psychosis or delusions, feeling depressed, worried about medication side effects. Mood: depressed Affect: blunted SI:passive HI:none VH/AH:none Delusions:none Insight/judgment:fair x 2. Memory/cog: alert, oriented x 3. grossly intact to conversational testing. Diagnostics Vital Signs (24Hr): Vital Signs - 24 hr 06/12/21 16:09 06/13/21 06:00 Temperature 97.8 F 97.9 F Pulse Rate 77 69 Respiratory Rate 18 18 Blood Pressure 117/78 115/72 Pulse Oximetry 98 100 BMI result Body Mass Index 26.1 Labs Results: 06/07/21 17:39 06/07/21 17:39 Medications Medications Current Medications Acetaminophen (Acetaminophen 325 Mg Tablet) 650 mg PO Q6H PRN PRN Reason: Headache/Pain Mild Scale (1-3) Last Admin: 06/10/21 14:02 Dose: 650 mg Documented by: Al Hydroxide/Mg Hydroxide (Magnesium Hydrox/Alum Hydrox 30 Ml Oral.Susp) 30 ml PO Q6H PRN PRN Reason: Heartburn/Nausea Carbamazepine (Carbamazepine 200 Mg Tablet) 200 mg PO BID [facility] Last Admin: 06/12/21 20:20 Dose: 200 mg Documented by: Diphenhydramine HCl (Diphenhydramine Hcl 25 Mg Tablet) 50 mg PO Q4H PRN PRN Reason: agitation Hydroxyzine HCl (Hydroxyzine Hcl 25 Mg Tablet) 25 mg PO QID PRN PRN Reason: Anxiety Lamotrigine (Lamotrigine 100 Mg Tablet) 200 mg PO DAILY [facility] Last Admin: 06/12/21 08:24 Dose: 200 mg Documented by: Lorazepam (Lorazepam 1 Mg Tablet) 1 mg PO BEDTIME [facility] Last Admin: 06/12/21 20:20 Dose: 1 mg Documented by: Lorazepam (Lorazepam 0.5 Mg Tablet) 0.5 mg PO Q6H PRN PRN Reason: Anxiety Last Admin: 06/12/21 09:00 Dose: 0.5 mg Documented by: Magnesium Hydroxide (Milk Of Magnesia 30 Ml Oral.Susp) 30 ml PO DAILY PRN PRN Reason: Constipation Meclizine HCl (Meclizine Hcl 25 Mg Tablet) 25 mg PO TID PRN PRN Reason: Dizziness Or Vertigo Last Admin: 06/12/21 11:43 Dose: 25 mg Documented by: Nicotine Polacrilex (Nicotine Polacrilex 2 Mg Gum) 4 mg BUCCAL Q2H PRN PRN Reason: Nicotine Cravings Olanzapine (Olanzapine 5 Mg Tablet) 5 mg PO BEDTIME [facility] Last Admin: 06/12/21 20:21 Dose: 5 mg Documented by: Sodium Chloride (Sodium Chloride 0.65 % Nasal 44 Ml Sprbtl) 1 spray NOSTRIL-B Q4H PRN PRN Reason: dry nostrils Last Admin: 06/12/21 08:53 Dose: 1 spray Documented by: Topiramate (Topiramate 25 Mg Tablet) 50 mg PO BID [facility] Last Admin: 06/12/21 20:21 Dose: 50 mg Documented by: Trazodone HCl (Trazodone Hcl 50 Mg Tablet) 50 mg PO BEDTIME PRN PRN Reason: Insomnia Valacyclovir HCl (Valacyclovir Hcl 500 Mg Tablet) 500 mg PO DAILY [facility] Last Admin: 06/12/21 08:25 Dose: 500 mg Documented by: Allergies Allergies Allergy/AdvReac Type Severity Reaction Status Date / Time No Known Allergies Allergy Verified 06/07/21 16:53 Assessment & Plan Assessment & Plan (1) Bipolar 1 disorder, depressed, severe: Status: Acute Code(s): F31.4 - Bipolar disorder, current episode depressed, severe, without psychotic features Plan Ms. Bourgeois is a 45 year-old woman with hx of Bipolar Disorder who earlier this year experience symptoms of mansi/mixed episode, now presents with depression and suicidal ideation. She has had multiple recent med trials. She did well on geodon but developed TD, which partially resolved when geodon d/c. She was started on lithium last year on 07/2020 but has been having episodes of vertigo which after medical work up there is possibility that may be related to lithium. She is also on 2 other mood stabilizer, one mostly for migraines- topamax and lamictal that pt has reported has been helpful for depression. We discussed risks, benefits and alternative treatment options. She agrees to start low dose of olanzapine, for mood. consider starting carbamazepine as main mood stabilizer and d/c topamax gradually. Carbamazepine may have positive therapeutic effect on migraines. PLAN: 1. admit to M5, cv 15 2. will d/c risperidone, higher risk of TD, than low dose of olanzapine 3. lower topamax from 150mg po BID, to 100mg po BID 4. start carbamazepine 200mg po BID- titrate. 5. obtain collateral infor 6. aftercare planning. 06/10- decrease topamax to 50mg po BID, continue carbamazepine 200mg po BID, continue olanzapine 5mg po qhs. ativan instead of clonazepam- one scheduled dose 0.5mg po qhs. prn dose of ativan 0.5mg po q6h also for vertigo/anxious mood. 06/11 continue plan I spent minutes with the patient and/or on the patient floor today, greater than?50% of which was spent counseling/coordinating care. Reason for contiued inpatient stay Substantial Risk for: harm to self
[2021-06-11] MEDS: clonazePAM 0.5 MG TABLET PO (11:28)
[2021-06-11] MEDS: valACYclovir HCL 500 MG TABLET PO (13:58)
[2021-06-11 18:00] VITALS: BP 115/81; PULSE 90; RESP 18; TEMP 37.3; O2SAT 100
[2021-06-11] MEDS: Topiramate 25 MG TABLET 50 MG PO (20:51)
[2021-06-11] MEDS: LORazepam 1 MG TABLET PO (20:51)
[2021-06-11] MEDS: OLANZapine 5 MG TABLET PO (20:52)
[2021-06-11] MEDS: Sodium Chloride 0.65 % Nasal 44 ML SPRBTL 1 SPRAY NOSTRIL-B (20:54)
[2021-06-12 06:00] VITALS: BP 117/72; PULSE 67; RESP 18; TEMP 36.7; O2SAT 100
[2021-06-12] MEDS: Topiramate 25 MG TABLET 50 MG PO ×2 (08:24→20:21)
[2021-06-12] MEDS: lamoTRIgine 100 MG TABLET 200 MG PO (08:24)
[2021-06-12] MEDS: carBAMazepine 200 MG TABLET PO ×2 (08:24→20:20)
[2021-06-12] MEDS: valACYclovir HCL 500 MG TABLET PO (08:25)
[2021-06-12] MEDS: Sodium Chloride 0.65 % Nasal 44 ML SPRBTL 1 SPRAY NOSTRIL-B (08:53)
[2021-06-12] MEDS: LORazepam 0.5 MG TABLET PO (09:00)
[2021-06-12] MEDS: Meclizine HCl 25 MG TABLET PO ×2 (09:00→11:43)
--- NOTE | 2021-06-12 11:34 | HO.PSYCHPN ---
Subjective Subjective Date of Service: 06/12/21 Reason For Visit: mansi Subjective Notes: Conditional Voluntary Interim History: Pt continues to reports sleeping for first time in years with olanzapine. She continues to report episodes of vertigo on and off- ativan and mezicline helping. She continues to endorse depressed mood, passive SI. No VH/AH. worried about side effects of medications. waiting for therapeutic response to medications. Medication Compliance: Yes Side effects from medications: No Attending Groups: Intermittent Review of Systems Review of Systems +Vertigo No Chest pain No diarrhea/constipation No changes in vision Yes all other systems are reviewed and are negative Constitutional: Reports no additional constitutional complaints Mental Status Exam Mental Status Exam Narrative: Appearance: casually groomed, fair hygiene in NAD Behavior:cooperative psychomotor:no agitation or retardation noted, slight perioral involuntary movement Speech:clear, normal rate/rhythm/volume, spontaneous Thought process:linear Thought content:no psychosis or delusions, feeling depressed, worried about medication side effects. Mood: depressed Affect: blunted SI:passive HI:none VH/AH:none Delusions:none Insight/judgment:fair x 2. Memory/cog: alert, oriented x 3. grossly intact to conversational testing. Diagnostics Vital Signs (24Hr): Vital Signs - 24 hr 06/12/21 16:09 06/13/21 06:00 Temperature 97.8 F 97.9 F Pulse Rate 77 69 Respiratory Rate 18 18 Blood Pressure 117/78 115/72 Pulse Oximetry 98 100 BMI result Body Mass Index 26.1 Labs Results: 06/07/21 17:39 06/07/21 17:39 Medications Medications Current Medications Acetaminophen (Acetaminophen 325 Mg Tablet) 650 mg PO Q6H PRN PRN Reason: Headache/Pain Mild Scale (1-3) Last Admin: 06/10/21 14:02 Dose: 650 mg Documented by: Al Hydroxide/Mg Hydroxide (Magnesium Hydrox/Alum Hydrox 30 Ml Oral.Susp) 30 ml PO Q6H PRN PRN Reason: Heartburn/Nausea Carbamazepine (Carbamazepine 200 Mg Tablet) 200 mg PO BID [facility] Last Admin: 06/12/21 20:20 Dose: 200 mg Documented by: Diphenhydramine HCl (Diphenhydramine Hcl 25 Mg Tablet) 50 mg PO Q4H PRN PRN Reason: agitation Hydroxyzine HCl (Hydroxyzine Hcl 25 Mg Tablet) 25 mg PO QID PRN PRN Reason: Anxiety Lamotrigine (Lamotrigine 100 Mg Tablet) 200 mg PO DAILY [facility] Last Admin: 06/12/21 08:24 Dose: 200 mg Documented by: Lorazepam (Lorazepam 1 Mg Tablet) 1 mg PO BEDTIME [facility] Last Admin: 06/12/21 20:20 Dose: 1 mg Documented by: Lorazepam (Lorazepam 0.5 Mg Tablet) 0.5 mg PO Q6H PRN PRN Reason: Anxiety Last Admin: 06/12/21 09:00 Dose: 0.5 mg Documented by: Magnesium Hydroxide (Milk Of Magnesia 30 Ml Oral.Susp) 30 ml PO DAILY PRN PRN Reason: Constipation Meclizine HCl (Meclizine Hcl 25 Mg Tablet) 25 mg PO TID PRN PRN Reason: Dizziness Or Vertigo Last Admin: 06/12/21 11:43 Dose: 25 mg Documented by: Nicotine Polacrilex (Nicotine Polacrilex 2 Mg Gum) 4 mg BUCCAL Q2H PRN PRN Reason: Nicotine Cravings Olanzapine (Olanzapine 5 Mg Tablet) 5 mg PO BEDTIME [facility] Last Admin: 06/12/21 20:21 Dose: 5 mg Documented by: Sodium Chloride (Sodium Chloride 0.65 % Nasal 44 Ml Sprbtl) 1 spray NOSTRIL-B Q4H PRN PRN Reason: dry nostrils Last Admin: 06/12/21 08:53 Dose: 1 spray Documented by: Topiramate (Topiramate 25 Mg Tablet) 50 mg PO BID [facility] Last Admin: 06/12/21 20:21 Dose: 50 mg Documented by: Trazodone HCl (Trazodone Hcl 50 Mg Tablet) 50 mg PO BEDTIME PRN PRN Reason: Insomnia Valacyclovir HCl (Valacyclovir Hcl 500 Mg Tablet) 500 mg PO DAILY [facility] Last Admin: 06/12/21 08:25 Dose: 500 mg Documented by: Allergies Allergies Allergy/AdvReac Type Severity Reaction Status Date / Time No Known Allergies Allergy Verified 06/07/21 16:53 Assessment & Plan Assessment & Plan (1) Bipolar 1 disorder, depressed, severe: Status: Acute Code(s): F31.4 - Bipolar disorder, current episode depressed, severe, without psychotic features Plan Ms. Bourgeois is a 45 year-old woman with hx of Bipolar Disorder who earlier this year experience symptoms of mansi/mixed episode, now presents with depression and suicidal ideation. She has had multiple recent med trials. She did well on geodon but developed TD, which partially resolved when geodon d/c. She was started on lithium last year on 07/2020 but has been having episodes of vertigo which after medical work up there is possibility that may be related to lithium. She is also on 2 other mood stabilizer, one mostly for migraines- topamax and lamictal that pt has reported has been helpful for depression. We discussed risks, benefits and alternative treatment options. She agrees to start low dose of olanzapine, for mood. consider starting carbamazepine as main mood stabilizer and d/c topamax gradually. Carbamazepine may have positive therapeutic effect on migraines. PLAN: 1. admit to M5, cv 15 2. will d/c risperidone, higher risk of TD, than low dose of olanzapine 3. lower topamax from 150mg po BID, to 100mg po BID 4. start carbamazepine 200mg po BID- titrate. 5. obtain collateral infor 6. aftercare planning. 06/10- decrease topamax to 50mg po BID, continue carbamazepine 200mg po BID, continue olanzapine 5mg po qhs. ativan instead of clonazepam- one scheduled dose 0.5mg po qhs. prn dose of ativan 0.5mg po q6h also for vertigo/anxious mood. 06/11 continue plan 06/12 continue tx plan. will titrate carbamazepine. I spent minutes with the patient and/or on the patient floor today, greater than?50% of which was spent counseling/coordinating care. Reason for contiued inpatient stay Substantial Risk for: harm to self
[2021-06-12 16:09] VITALS: BP 117/78; PULSE 77; RESP 18; TEMP 36.6; O2SAT 98
[2021-06-12] MEDS: LORazepam 1 MG TABLET PO (20:20)
[2021-06-12] MEDS: OLANZapine 5 MG TABLET PO (20:21)
[2021-06-13 06:00] VITALS: BP 115/72; PULSE 69; RESP 18; TEMP 36.6; O2SAT 100
[2021-06-13] MEDS: lamoTRIgine 100 MG TABLET 200 MG PO (08:59)
[2021-06-13] MEDS: valACYclovir HCL 500 MG TABLET PO (09:00)
[2021-06-13] MEDS: carBAMazepine 200 MG TABLET PO ×2 (09:00→20:46)
[2021-06-13] MEDS: Topiramate 25 MG TABLET 50 MG PO (09:07)
[2021-06-13] MEDS: Meclizine HCl 25 MG TABLET PO ×2 (10:35→13:23)
[2021-06-13 14:58] LABS: MANUAL DIFF FLAG NO
[2021-06-13 15:03] LABS: Basophils Absolute Auto 0.1 X10*3/uL (0.0-0.2); Basophils Percent Auto 1.2 % (0-2); Eosinophils Absolute Auto 0.3 X10*3/uL (0.0-0.4); Eosinophils Percent Auto 3.3 % (0-4); Hematocrit 43.7 % (37.0-47.0); Hemoglobin 13.9 g/dl (12.0-16.0); Imm Gran Abs Auto 0.02 X10*3/uL (0.00-0.03); Imm Gran Pct Auto 0.3 % (0.0-0.4); Lymphocytes Absolute Auto 1.9 X10*3/uL (1.2-4.9); Lymphocytes Percent Auto 25.7 % (20-40); Mean Corpuscular HGB Conc 31.8 g/dl (31.0-35.0); Mean Corpuscular Hemoglobin 28.9 pg (27.0-33.0); Mean Corpuscular Volume 90.9 fL (80.0-98.0); Mean Platelet Volume 10.5 fL (9.4-12.3); Monocytes Absolute Auto 0.6 X10*3/uL (0.1-1.2); Monocytes Percent Auto 7.3 % (2-11); Neutrophils Absolute Auto 4.7 x10*3/uL (2.0-8.3); Neutrophils Percent Auto 62.2 % (45-73); Platelet Count 350 X10*3/uL (160-400); Red Blood Count 4.81 X10*6/uL (4.20-5.50); Red Cell Distribution Width 13.5 % (11.0-16.0); White Blood Count 7.5 X10*3/uL (4.8-10.8)
[2021-06-13 15:21] LABS: Alanine Aminotransferase 12 U/L (0-31); Albumin Level 4.1 g/dL (3.5-5.0); Alkaline Phosphatase 67 U/L (39-117); Aspartate Amino Transferase 13 U/L (5-31); Bilirubin Total 0.4 mg/dL (0.0-1.0); Blood Urea Nitrogen 11 mg/dL (9-16); Calcium 9.5 mg/dL (8.4-10.2); Creatinine Clr Calc Pharmacy 78.1; Estimated Glomerular Filt Rate > 60; Glucose Random 85 mg/dL (60-115)
[2021-06-13 15:30] LABS: Anion Gap 11 (12-20); Carbon Dioxide 20 mmol/L (22-29); Chloride 115 mmol/L (96-108); Potassium 4.3 mmol/L (3.3-5.1); Sodium 142 mmol/L (135-145)
--- NOTE | 2021-06-13 17:43 | P.PNPSI_ITS ---
Subjective Subjective Date of Service: 06/13/21 Reason For Visit: mansi Subjective Notes: Conditional Voluntary Healthcare Proxy: No Guardianship: No Medical Problems Affecting Mental Status: No Interim History: Lizbeth reports vertigo. States this started after Smyer was initiated in July 2020 and has increased in frequency. MRI completed 05/27/21 with PCP office. States aneurysm was found and they will be addressing this at some point. New starts of Olanzapine/Tegretol. Will taper Topamax and discontinue as it may be contributing (pt refused taper and asks that it just be stopped). Concerned Smyer is not begin excreted. Labs completed- Li 0.10, CBCD WNL, CMP WNL-CO2, Anion, elevated consistent by history. Pt with intermittent passive SI, vertigo, anxeity-several significant psychosocial stressors. I just want to make sure I am on the right medications. Medication Compliance: Yes Side effects from medications: No Attending Groups: Yes Review of Systems Acute medical concerns: No Vertigo Medical Review of Systems: unchanged Review of Systems Psychiatric: Reports anxiety, Reports depression, Reports anhedonia and Reports suicidal ideation (passive) Mental Status Exam Mental Status Exam Patient Appearance: Appropriate Patient Orientation: Person, Place, Time and Situation Level of Consciousness: Alert Patient Behavior: Appropriate, Talkative, Cooperative and Good Eye Contact Mood Description: Anxious and Apprehensive Affect Description: Anxious Patient Cognition Impaired: No Ability to Follow Directions: Good Speech Pattern: Spontaneous Speech Memory Description: Intact Hallucinations: None Delusions: Not Present Thought Process: Rumination Thought Content: positive for Intact Depressive Symptoms: Increased Anxiety Judgement: Good Diagnostics Vital Signs (24Hr): Vital Signs - 24 hr 06/13/21 06:00 Temperature 97.9 F Pulse Rate 69 Respiratory Rate 18 Blood Pressure 115/72 Pulse Oximetry 100 BMI result Body Mass Index 26.1 Labs Results: 06/13/21 14:39 06/13/21 14:39 Labs: Laboratory Results - last 48 hr 06/13/21 06/13/21 06/13/21 14:39 14:39 14:39 WBC 7.5 RBC 4.81 Hgb 13.9 Hct 43.7 MCV 90.9 MCH 28.9 MCHC 31.8 RDW 13.5 Plt Count 350 MPV 10.5 Immature Gran % (Auto) 0.3 Neut % (Auto) 62.2 Lymph % (Auto) 25.7 [place] % (Auto) 7.3 Eos % (Auto) 3.3 Baso % (Auto) 1.2 Lymph # (Auto) 1.9 [place] # (Auto) 0.6 Eos # (Auto) 0.3 Baso # (Auto) 0.1 Abs Immat Gran (auto) 0.02 Absolute Neuts (auto) 4.7 Absolute Nucleated RBC 0.000 Nucleated RBC % (auto) 0.0 Sodium 142 Potassium 4.3 Chloride 115 H Carbon Dioxide 20 L Anion Gap 11 L BUN 11 Creatinine 0.88 Estim Creat Clear Calc 78.1 Estimated GFR > 60 Random Glucose 85 Calcium 9.5 Total Bilirubin 0.4 AST 13 ALT 12 Alkaline Phosphatase 67 Total Protein 7.0 Albumin 4.1 [place] 0.10 L Medications Medications Current Medications Acetaminophen (Acetaminophen 325 Mg Tablet) 650 mg PO Q6H PRN PRN Reason: Headache/Pain Mild Scale (1-3) Last Admin: 06/10/21 14:02 Dose: 650 mg Documented by: Al Hydroxide/Mg Hydroxide (Magnesium Hydrox/Alum Hydrox 30 Ml Oral.Susp) 30 ml PO Q6H PRN PRN Reason: Heartburn/Nausea Carbamazepine (Carbamazepine 200 Mg Tablet) 200 mg PO BID [facility] Last Admin: 06/13/21 09:00 Dose: 200 mg Documented by: Diphenhydramine HCl (Diphenhydramine Hcl 25 Mg Tablet) 50 mg PO Q4H PRN PRN Reason: agitation Hydroxyzine HCl (Hydroxyzine Hcl 25 Mg Tablet) 25 mg PO QID PRN PRN Reason: Anxiety Lamotrigine (Lamotrigine 100 Mg Tablet) 200 mg PO DAILY [facility] Last Admin: 06/13/21 08:59 Dose: 200 mg Documented by: Lorazepam (Lorazepam 1 Mg Tablet) 1 mg PO BEDTIME [facility] Last Admin: 06/12/21 20:20 Dose: 1 mg Documented by: Lorazepam (Lorazepam 0.5 Mg Tablet) 0.5 mg PO Q6H PRN PRN Reason: Anxiety Last Admin: 06/12/21 09:00 Dose: 0.5 mg Documented by: Magnesium Hydroxide (Milk Of Magnesia 30 Ml Oral.Susp) 30 ml PO DAILY PRN PRN Reason: Constipation Meclizine HCl (Meclizine Hcl 25 Mg Tablet) 25 mg PO TID PRN PRN Reason: Dizziness Or Vertigo Last Admin: 06/13/21 13:23 Dose: 25 mg Documented by: Nicotine Polacrilex (Nicotine Polacrilex 2 Mg Gum) 4 mg BUCCAL Q2H PRN PRN Reason: Nicotine Cravings Olanzapine (Olanzapine 5 Mg Tablet) 5 mg PO BEDTIME [facility] Last Admin: 06/12/21 20:21 Dose: 5 mg Documented by: Sodium Chloride (Sodium Chloride 0.65 % Nasal 44 Ml Sprbtl) 1 spray NOSTRIL-B Q4H PRN PRN Reason: dry nostrils Last Admin: 06/12/21 08:53 Dose: 1 spray Documented by: Topiramate (Topiramate 25 Mg Tablet) 50 mg PO BID [facility] Last Admin: 06/13/21 09:07 Dose: 50 mg Documented by: Trazodone HCl (Trazodone Hcl 50 Mg Tablet) 50 mg PO BEDTIME PRN PRN Reason: Insomnia Valacyclovir HCl (Valacyclovir Hcl 500 Mg Tablet) 500 mg PO DAILY [facility] Last Admin: 06/13/21 09:00 Dose: 500 mg Documented by: Allergies Allergies Allergy/AdvReac Type Severity Reaction Status Date / Time No Known Allergies Allergy Verified 06/07/21 16:53 Assessment & Plan Assessment & Plan (1) Bipolar 1 disorder, depressed, severe: Status: Acute Code(s): F31.4 - Bipolar disorder, current episode depressed, severe, without psychotic features Plan Ms. Bourgeois is a 45 year-old woman with hx of Bipolar Disorder who earlier this year experience symptoms of mansi/mixed episode, now presents with depression and suicidal ideation. She has had multiple recent med trials. She did well on geodon but developed TD, which partially resolved when geodon d/c. She was started on lithium last year on 07/2020 but has been having episodes of vertigo which after medical work up there is possibility that may be related to lithium. She is also on 2 other mood stabilizer, one mostly for migraines- topamax and lamictal that pt has reported has been helpful for depression. We discussed risks, benefits and alternative treatment options. She agrees to start low dose of olanzapine, for mood. consider starting carbamazepine as main mood stabilizer and d/c topamax gradually. Carbamazepine may have positive therapeutic effect on migraines. PLAN: 1. admit to M5, cv 15 2. will d/c risperidone, higher risk of TD, than low dose of olanzapine 3. lower topamax from 150mg po BID, to 100mg po BID 4. start carbamazepine 200mg po BID- titrate. 5. obtain collateral infor 6. aftercare planning. 06/10- decrease topamax to 50mg po BID, continue carbamazepine 200mg po BID, continue olanzapine 5mg po qhs. ativan instead of clonazepam- one scheduled dose 0.5mg po qhs. prn dose of ativan 0.5mg po q6h also for vertigo/anxious mood. 06/11 continue plan 06/12 continue tx plan. will titrate carbamazepine. 06/13 discontinue topamax-pt declines to continue tapering message left for PCP, Rob Suarez [phone] to discuss vertigo, plan of care for aneurysm and recommendations. I spent minutes with the patient and/or on the patient floor today, greater than?50% of which was spent counseling/coordinating care. Patient educated on: medication risk/benefits and therapeutic strategies Informed Consent: understands Reason for contiued inpatient stay Substantial Risk for: harm to self, inability to function, rapid decompensation and med/psych decompensation
[2021-06-13 20:45] VITALS: BP 121/82; PULSE 99; TEMP 36.9; O2SAT 98
[2021-06-13] MEDS: OLANZapine 5 MG TABLET PO (20:47)
[2021-06-13] MEDS: LORazepam 1 MG TABLET PO (20:47)
--- NOTE | 2021-06-13 21:27 | PC.NURSE ---
Patient refused HS Topamax because she felt Weird . Roula Osullivan APRN notified.
[2021-06-14 06:00] VITALS: BP 121/76; PULSE 60; RESP 14; TEMP 36.2; O2SAT 100
[2021-06-14] MEDS: valACYclovir HCL 500 MG TABLET PO (08:08)
[2021-06-14] MEDS: lamoTRIgine 100 MG TABLET 200 MG PO (08:08)
[2021-06-14] MEDS: carBAMazepine 200 MG TABLET PO ×2 (08:08→20:51)
[2021-06-14] MEDS: Meclizine HCl 25 MG TABLET PO ×3 (09:13→21:38)
--- NOTE | 2021-06-14 17:24 | HO.PSYCHPN ---
Subjective Subjective Date of Service: 06/14/21 Reason For Visit: mansi Subjective Notes: Conditional Voluntary Healthcare Proxy: No Guardianship: No Medical Problems Affecting Mental Status: No Interim History: Pt continues with vertigo. Message left for Robdean Suarez NP [phone] (new contact number) to discuss PCP plan of care. Pt reports meclizine is not helpful. Reports she may need new glasses. Reports a decrease in depressive sx, no intrusive thoughts and some anxiety. Discussed medication hx-Geodon TD sx at 40 mg, Abilify- made me feel out of my skin. , Latuda-caused SI, Risperdal changed to Olanzapine on admit. Reports she has seen psychiatry with [facility] for consult for TD. Encouraged pt to make an appt again given vertigo sx and medications sensitivities. Discussed discharge for 06/16/21 and pt is in agreement as mood sx are improved. Will continue to monitor vertigo sx. Reports no headache, no abrupt visual changes at this time. Medication Compliance: Yes Side effects from medications: No Attending Groups: Yes Review of Systems Acute medical concerns: No Medical Review of Systems: unchanged Review of Systems Reports vertigo Reports vertigo Psychiatric: Reports anxiety and Reports suicidal ideation (denies) Mental Status Exam Mental Status Exam Patient Appearance: Appropriate Patient Orientation: Person, Place, Time and Situation Level of Consciousness: Alert Patient Behavior: Appropriate, Talkative, Cooperative and Good Eye Contact Mood Description: Anxious and Apprehensive Affect Description: Anxious Patient Cognition Impaired: No Ability to Follow Directions: Good Speech Pattern: Spontaneous Speech Memory Description: Intact Hallucinations: None Delusions: Not Present Thought Process: Rumination Thought Content: positive for Intact Depressive Symptoms: Increased Anxiety Judgement: Good Diagnostics Vital Signs (24Hr): Vital Signs - 24 hr 06/13/21 20:45 06/14/21 06:00 Temperature 98.5 F 97.2 F Pulse Rate 99 60 Respiratory Rate 14 Blood Pressure 121/82 121/76 Pulse Oximetry 98 100 BMI result Body Mass Index 26.1 Labs Results: 06/13/21 14:39 06/13/21 14:39 Labs: Laboratory Results - last 48 hr 06/13/21 06/13/21 06/13/21 14:39 14:39 14:39 WBC 7.5 RBC 4.81 Hgb 13.9 Hct 43.7 MCV 90.9 MCH 28.9 MCHC 31.8 RDW 13.5 Plt Count 350 MPV 10.5 Immature Gran % (Auto) 0.3 Neut % (Auto) 62.2 Lymph % (Auto) 25.7 [place] % (Auto) 7.3 Eos % (Auto) 3.3 Baso % (Auto) 1.2 Lymph # (Auto) 1.9 [place] # (Auto) 0.6 Eos # (Auto) 0.3 Baso # (Auto) 0.1 Abs Immat Gran (auto) 0.02 Absolute Neuts (auto) 4.7 Absolute Nucleated RBC 0.000 Nucleated RBC % (auto) 0.0 Sodium 142 Potassium 4.3 Chloride 115 H Carbon Dioxide 20 L Anion Gap 11 L BUN 11 Creatinine 0.88 Estim Creat Clear Calc 78.1 Estimated GFR > 60 Random Glucose 85 Calcium 9.5 Total Bilirubin 0.4 AST 13 ALT 12 Alkaline Phosphatase 67 Total Protein 7.0 Albumin 4.1 [place] 0.10 L Medications Medications Current Medications Acetaminophen (Acetaminophen 325 Mg Tablet) 650 mg PO Q6H PRN PRN Reason: Headache/Pain Mild Scale (1-3) Last Admin: 06/10/21 14:02 Dose: 650 mg Documented by: Al Hydroxide/Mg Hydroxide (Magnesium Hydrox/Alum Hydrox 30 Ml Oral.Susp) 30 ml PO Q6H PRN PRN Reason: Heartburn/Nausea Carbamazepine (Carbamazepine 200 Mg Tablet) 200 mg PO BID [facility] Last Admin: 06/14/21 08:08 Dose: 200 mg Documented by: Diphenhydramine HCl (Diphenhydramine Hcl 25 Mg Tablet) 50 mg PO Q4H PRN PRN Reason: agitation Hydroxyzine HCl (Hydroxyzine Hcl 25 Mg Tablet) 25 mg PO QID PRN PRN Reason: Anxiety Lamotrigine (Lamotrigine 100 Mg Tablet) 200 mg PO DAILY [facility] Last Admin: 06/14/21 08:08 Dose: 200 mg Documented by: Lorazepam (Lorazepam 1 Mg Tablet) 1 mg PO BEDTIME [facility] Last Admin: 06/13/21 20:47 Dose: 1 mg Documented by: Lorazepam (Lorazepam 0.5 Mg Tablet) 0.5 mg PO Q6H PRN PRN Reason: Anxiety Last Admin: 06/12/21 09:00 Dose: 0.5 mg Documented by: Magnesium Hydroxide (Milk Of Magnesia 30 Ml Oral.Susp) 30 ml PO DAILY PRN PRN Reason: Constipation Meclizine HCl (Meclizine Hcl 25 Mg Tablet) 25 mg PO TID PRN PRN Reason: Dizziness Or Vertigo Last Admin: 06/14/21 15:13 Dose: 25 mg Documented by: Nicotine Polacrilex (Nicotine Polacrilex 2 Mg Gum) 4 mg BUCCAL Q2H PRN PRN Reason: Nicotine Cravings Olanzapine (Olanzapine 5 Mg Tablet) 5 mg PO BEDTIME [facility] Last Admin: 06/13/21 20:47 Dose: 5 mg Documented by: Sodium Chloride (Sodium Chloride 0.65 % Nasal 44 Ml Sprbtl) 1 spray NOSTRIL-B Q4H PRN PRN Reason: dry nostrils Last Admin: 06/12/21 08:53 Dose: 1 spray Documented by: Trazodone HCl (Trazodone Hcl 50 Mg Tablet) 50 mg PO BEDTIME PRN PRN Reason: Insomnia Valacyclovir HCl (Valacyclovir Hcl 500 Mg Tablet) 500 mg PO DAILY [facility] Last Admin: 06/14/21 08:08 Dose: 500 mg Documented by: Allergies Allergies Allergy/AdvReac Type Severity Reaction Status Date / Time No Known Allergies Allergy Verified 06/07/21 16:53 Assessment & Plan Assessment & Plan (1) Bipolar 1 disorder, depressed, severe: Status: Acute Code(s): F31.4 - Bipolar disorder, current episode depressed, severe, without psychotic features Plan Ms. Bourgeois is a 45 year-old woman with hx of Bipolar Disorder who earlier this year experience symptoms of mansi/mixed episode, now presents with depression and suicidal ideation. She has had multiple recent med trials. She did well on geodon but developed TD, which partially resolved when geodon d/c. She was started on lithium last year on 07/2020 but has been having episodes of vertigo which after medical work up there is possibility that may be related to lithium. She is also on 2 other mood stabilizer, one mostly for migraines- topamax and lamictal that pt has reported has been helpful for depression. We discussed risks, benefits and alternative treatment options. She agrees to start low dose of olanzapine, for mood. consider starting carbamazepine as main mood stabilizer and d/c topamax gradually. Carbamazepine may have positive therapeutic effect on migraines. PLAN: 1. admit to M5, cv 15 2. will d/c risperidone, higher risk of TD, than low dose of olanzapine 3. lower topamax from 150mg po BID, to 100mg po BID 4. start carbamazepine 200mg po BID- titrate. 5. obtain collateral infor 6. aftercare planning. 06/10- decrease topamax to 50mg po BID, continue carbamazepine 200mg po BID, continue olanzapine 5mg po qhs. ativan instead of clonazepam- one scheduled dose 0.5mg po qhs. prn dose of ativan 0.5mg po q6h also for vertigo/anxious mood. 06/11 continue plan 06/12 continue tx plan. will titrate carbamazepine. 06/13 discontinue topamax-pt declines to continue tapering message left for PCP, Rob Suarez [phone] to discuss vertigo, plan of care for aneurysm and recommendations. 06/14- message left for Rob Suarez [phone] to discuss vertigo, plan of care for aneurysm and recommendations. tentative discharge 06/16. I spent minutes with the patient and/or on the patient floor today, greater than?50% of which was spent counseling/coordinating care. Patient educated on: therapeutic strategies Informed Consent: understands Reason for contiued inpatient stay Substantial Risk for: med/psych decompensation
[2021-06-14] MEDS: OLANZapine 5 MG TABLET PO (20:51)
[2021-06-14] MEDS: LORazepam 1 MG TABLET PO (20:51)
[2021-06-14] MEDS: LORazepam 0.5 MG TABLET PO (21:38)
[2021-06-15 06:00] VITALS: BP 112/76; PULSE 70; RESP 17; TEMP 36.9; O2SAT 96
[2021-06-15] MEDS: valACYclovir HCL 500 MG TABLET PO (09:07)
[2021-06-15] MEDS: lamoTRIgine 100 MG TABLET 200 MG PO (09:07)
[2021-06-15] MEDS: carBAMazepine 200 MG TABLET PO ×2 (09:07→20:25)
[2021-06-15] MEDS: LORazepam 0.5 MG TABLET PO (10:12)
[2021-06-15 10:57] LABS: Carbamazepine Tegretol 4.9 mcg/mL (5.0-12.0)
[2021-06-15] MEDS: Meclizine HCl 25 MG TABLET PO (12:31)
--- NOTE | 2021-06-15 16:12 | HO.PSYCHPN ---
Subjective Subjective Date of Service: 06/15/21 Reason For Visit: mansi Subjective Notes: Conditional Voluntary Healthcare Proxy: No Guardianship: No Medical Problems Affecting Mental Status: No Interim History: Reports stable mood, tolerating regime, intermittent vertigo sx. Message left again with PCP office with no return call as of this writing. Reivew of adverse effects of antipsychotic medications graph with pt who asked appropriate questions and discussed moving forward with her care. Planning discharge for 06/16, feeling prepared-will follow up she reports with [facility]. At 1630 pt's RN informed me pt reports perioral mvts and plans to stop Olanzapine. Benztropine 0.5 mg po hs trial ordered. Medication Compliance: Yes Side effects from medications: Yes (reports perioral mvts. Benztropine trial 0.5 mg ordered) Attending Groups: No Review of Systems Acute medical concerns: No vertigo Medical Review of Systems: unchanged Review of Systems Psychiatric: Reports other (perioral mvts) Mental Status Exam Mental Status Exam Patient Appearance: Appropriate Patient Orientation: Person, Place, Time and Situation Level of Consciousness: Alert Patient Behavior: Appropriate, Talkative, Cooperative and Good Eye Contact Mood Description: Anxious and Apprehensive Affect Description: Anxious Patient Cognition Impaired: No Ability to Follow Directions: Good Speech Pattern: Spontaneous Speech Memory Description: Intact Hallucinations: None Delusions: Not Present Thought Process: Rumination Thought Content: positive for Intact Depressive Symptoms: Increased Anxiety Judgement: Good Diagnostics Vital Signs (24Hr): Vital Signs - 24 hr 06/15/21 06:00 Temperature 98.4 F Pulse Rate 70 Respiratory Rate 17 Blood Pressure 112/76 Pulse Oximetry 96 BMI result Body Mass Index 26.1 Labs Results: 06/13/21 14:39 06/13/21 14:39 Labs: Laboratory Results - last 48 hr 06/15/21 08:02 Carbamazepine 4.9 L Medications Medications Current Medications Acetaminophen (Acetaminophen 325 Mg Tablet) 650 mg PO Q6H PRN PRN Reason: Headache/Pain Mild Scale (1-3) Last Admin: 06/10/21 14:02 Dose: 650 mg Documented by: Al Hydroxide/Mg Hydroxide (Magnesium Hydrox/Alum Hydrox 30 Ml Oral.Susp) 30 ml PO Q6H PRN PRN Reason: Heartburn/Nausea Carbamazepine (Carbamazepine 200 Mg Tablet) 200 mg PO BID GENEVIEVE Last Admin: 06/15/21 09:07 Dose: 200 mg Documented by: Diphenhydramine HCl (Diphenhydramine Hcl 25 Mg Tablet) 50 mg PO Q4H PRN PRN Reason: agitation Hydroxyzine HCl (Hydroxyzine Hcl 25 Mg Tablet) 25 mg PO QID PRN PRN Reason: Anxiety Lamotrigine (Lamotrigine 100 Mg Tablet) 200 mg PO DAILY [facility] Last Admin: 06/15/21 09:07 Dose: 200 mg Documented by: Lorazepam (Lorazepam 1 Mg Tablet) 1 mg PO BEDTIME [facility] Last Admin: 06/14/21 20:51 Dose: 1 mg Documented by: Lorazepam (Lorazepam 0.5 Mg Tablet) 0.5 mg PO Q6H PRN PRN Reason: Anxiety Last Admin: 06/15/21 10:12 Dose: 0.5 mg Documented by: Magnesium Hydroxide (Milk Of Magnesia 30 Ml Oral.Susp) 30 ml PO DAILY PRN PRN Reason: Constipation Meclizine HCl (Meclizine Hcl 25 Mg Tablet) 25 mg PO TID PRN PRN Reason: Dizziness Or Vertigo Last Admin: 06/15/21 12:31 Dose: 25 mg Documented by: Nicotine Polacrilex (Nicotine Polacrilex 2 Mg Gum) 4 mg BUCCAL Q2H PRN PRN Reason: Nicotine Cravings Olanzapine (Olanzapine 5 Mg Tablet) 5 mg PO BEDTIME [facility] Last Admin: 06/14/21 20:51 Dose: 5 mg Documented by: Sodium Chloride (Sodium Chloride 0.65 % Nasal 44 Ml Sprbtl) 1 spray NOSTRIL-B Q4H PRN PRN Reason: dry nostrils Last Admin: 06/12/21 08:53 Dose: 1 spray Documented by: Trazodone HCl (Trazodone Hcl 50 Mg Tablet) 50 mg PO BEDTIME PRN PRN Reason: Insomnia Valacyclovir HCl (Valacyclovir Hcl 500 Mg Tablet) 500 mg PO DAILY [facility] Last Admin: 06/15/21 09:07 Dose: 500 mg Documented by: Allergies Allergies Allergy/AdvReac Type Severity Reaction Status Date / Time No Known Allergies Allergy Verified 06/07/21 16:53 Assessment & Plan Assessment & Plan (1) Bipolar 1 disorder, depressed, severe: Status: Acute Code(s): F31.4 - Bipolar disorder, current episode depressed, severe, without psychotic features Plan Ms. Bourgeois is a 45 year-old woman with hx of Bipolar Disorder who earlier this year experience symptoms of mansi/mixed episode, now presents with depression and suicidal ideation. She has had multiple recent med trials. She did well on geodon but developed TD, which partially resolved when geodon d/c. She was started on lithium last year on 07/2020 but has been having episodes of vertigo which after medical work up there is possibility that may be related to lithium. She is also on 2 other mood stabilizer, one mostly for migraines- topamax and lamictal that pt has reported has been helpful for depression. We discussed risks, benefits and alternative treatment options. She agrees to start low dose of olanzapine, for mood. consider starting carbamazepine as main mood stabilizer and d/c topamax gradually. Carbamazepine may have positive therapeutic effect on migraines. PLAN: 1. admit to [facility], cv 15 2. will d/c risperidone, higher risk of TD, than low dose of olanzapine 3. lower topamax from 150mg po BID, to 100mg po BID 4. start carbamazepine 200mg po BID- titrate. 5. obtain collateral infor 6. aftercare planning. 06/10- decrease topamax to 50mg po BID, continue carbamazepine 200mg po BID, continue olanzapine 5mg po qhs. ativan instead of clonazepam- one scheduled dose 0.5mg po qhs. prn dose of ativan 0.5mg po q6h also for vertigo/anxious mood. 06/11 continue plan 06/12 continue tx plan. will titrate carbamazepine. 06/13 discontinue topamax-pt declines to continue tapering message left for PCP, Rob Suarez [phone] to discuss vertigo, plan of care for aneurysm and recommendations. 06/14- message left for Rob Suarez [phone] to discuss vertigo, plan of care for aneurysm and recommendations. Discharge tentative for 06/16 as pt has new sx as of 1630 Benztropine 0.5 mg hs tonight as pt is now reporting peroral mvts. I spent minutes with the patient and/or on the patient floor today, greater than?50% of which was spent counseling/coordinating care. Patient educated on: diagnosis, medication risk/benefits and therapeutic strategies Informed Consent: understands Reason for contiued inpatient stay Substantial Risk for: rapid decompensation
[2021-06-15 18:00] VITALS: BP 132/84; PULSE 77; RESP 18; TEMP 37.1; O2SAT 99
[2021-06-15] MEDS: LORazepam 1 MG TABLET PO (20:25)
[2021-06-15] MEDS: Benztropine Mesylate 0.5 MG TABLET PO (20:25)
[2021-06-15] MEDS: OLANZapine 5 MG TABLET PO (20:25)
[2021-06-16 06:48] VITALS: BP 135/90; PULSE 70; RESP 16; TEMP 36.8; O2SAT 100
[2021-06-16] MEDS: lamoTRIgine 100 MG TABLET 200 MG PO (08:38)
[2021-06-16] MEDS: carBAMazepine 200 MG TABLET PO (08:38)
[2021-06-16] MEDS: valACYclovir HCL 500 MG TABLET PO (08:38)
--- NOTE | 2021-06-16 08:44 | P.DS_ITS ---
DS: Providers Provider Date of Service: 06/16/21 Date of admission: 06/08/21 16:16 Date of discharge: 06/16/21 Primary care physician: Unknown Physician Admitting clinician: Maricruz Fatima Attending physician on admission: Maricruz Fatima Attending physician on discharge: Roopa Clemons Discharging clinician: Roopa Clemons DS: Diagnosis Discharge Diagnosis (1) Bipolar 1 disorder, depressed, severe: Status: Acute DS: Medications Discharge Medications Home Medications: Previous Rx's Medication Instructions Recorded carbamazepine 200 mg tablet 200 mg PO BID #60 tab 06/15/21 lamotrigine 200 mg tablet 1 tab PO BID #30 tab 06/15/21 meclizine 25 mg tablet 1 - 2 tab PO TID PRN #60 tab 06/15/21 nicotine (polacrilex) 2 mg gum 4 mg BUCCAL Q2H PRN #60 ea 06/15/21 olanzapine 5 mg tablet 5 mg PO BEDTIME #30 tab 06/15/21 sodium chloride 0.65 % nasal spray 1 spray INTRANASAL Q4H PRN #20 ml 06/15/21 aerosol (Deep Sea Nasal) valacyclovir 500 mg tablet 500 mg PO DAILY #30 tab 06/15/21 Mental Status Exam Mental Status Exam Patient Appearance: Appropriate Patient Orientation: Person, Place, Time and Situation Level of Consciousness: Alert Patient Behavior: Appropriate, Talkative, Cooperative and Good Eye Contact Mood Description: Anxious and Apprehensive Affect Description: Anxious Patient Cognition Impaired: No Ability to Follow Directions: Good Speech Pattern: Spontaneous Speech Memory Description: Intact Hallucinations: None Delusions: Not Present Thought Process: Rumination Thought Content: positive for Intact Depressive Symptoms: Increased Anxiety Judgement: Good Data Data Completed and Pending Completed studies during hospitalization [Text1]: 06/09/21 06/09/21 06/13/21 08:21 08:21 14:39 WBC 7.5 RBC 4.81 Hgb 13.9 Hct 43.7 MCV 90.9 MCH 28.9 MCHC 31.8 RDW 13.5 Plt Count 350 MPV 10.5 Immature Gran % (Auto) 0.3 Neut % (Auto) 62.2 Lymph % (Auto) 25.7 [place] % (Auto) 7.3 Eos % (Auto) 3.3 Baso % (Auto) 1.2 Lymph # (Auto) 1.9 [place] # (Auto) 0.6 Eos # (Auto) 0.3 Baso # (Auto) 0.1 Abs Immat Gran (auto) 0.02 Absolute Neuts (auto) 4.7 Absolute Nucleated RBC 0.000 Nucleated RBC % (auto) 0.0 Sodium Potassium Chloride Carbon Dioxide Anion Gap BUN Creatinine Estim Creat Clear Calc Estimated GFR Random Glucose Estimat Average Glucose 91 Hemoglobin A1c % 4.8 Calcium Total Bilirubin AST ALT Alkaline Phosphatase Total Protein Albumin Triglycerides 118 Cholesterol 230 LDL Cholesterol, Calc 151 HDL Cholesterol 56 TSH 1.50 Carbamazepine [place] 06/13/21 06/13/21 06/15/21 14:39 14:39 08:02 WBC RBC Hgb Hct MCV MCH MCHC RDW Plt Count MPV Immature Gran % (Auto) Neut % (Auto) Lymph % (Auto) [place] % (Auto) Eos % (Auto) Baso % (Auto) Lymph # (Auto) [place] # (Auto) Eos # (Auto) Baso # (Auto) Abs Immat Gran (auto) Absolute Neuts (auto) Absolute Nucleated RBC Nucleated RBC % (auto) Sodium 142 Potassium 4.3 Chloride 115 H Carbon Dioxide 20 L Anion Gap 11 L BUN 11 Creatinine 0.88 Estim Creat Clear Calc 78.1 Estimated GFR > 60 Random Glucose 85 Estimat Average Glucose Hemoglobin A1c % Calcium 9.5 Total Bilirubin 0.4 AST 13 ALT 12 Alkaline Phosphatase 67 Total Protein 7.0 Albumin 4.1 Triglycerides Cholesterol LDL Cholesterol, Calc HDL Cholesterol TSH Carbamazepine 4.9 L [place] 0.10 L DS: Summary Hospital Course Hospital Course: Admission to adult psychiatry for symptoms of depression, suicidal ideation in the context of Bipolar Disorder. Pt reported a history of adverse reactions to medications-Geodon with tardive dyskinesia, [place] with 20 lb+ weight gain, Abilify with akathesia, and Latuda with an increase in suicidal ideation. Pt is also in process of medical eval for symptom of vertigo with her PCP. Prior to admission she had MRI and associated diagnostics. Vertigo continued during admission. PCP was contacted without response during the admission-pt will follow upon discharge. Pt also with hx of attending the [facility]- encouraged to follow up with their team as well given vertigo eval. Risperdal was replaced with Olanzapine, Topiramate was decreased and discontinued, Lamictal was continued, and Tegretol was initated during this admission with pt reporting relief. Pt plans to return to OP teams. She was encouraged to call and or return if symptoms persist or worsen. She denied SI,plan or intent at the ending of her admission and reported relief from depressive symptoms. 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 Time spent discussing smoking cessation with patient: 3 to 10 minutes Status at Discharge Functional status at discharge: independent ambulation Overall status at discharge: patient is progressing back to baseline Time Spent with Patient Time attestation: Total time spent providing and/or coordinating discharge services: 35 Time spent: Greater than 30 minutes Discharge Plan Discharge Patient Disposition: Home, Self-Care Discharge Diagnosis: Bipolar Disorder Referrals: Albina Garcia [Other] - 06/21/21 12:00 pm (Follow-up outpatient psychiatry appointment by tele-health) Gladys Jasso [Other] - Tomorrow (Outpatient therapist Patient will follow-up with outpatient therapist due after discharge as they have not responded to SW contact) ROB PRITCHARD [Other] - 06/22/21 1:00 pm (IN OFFICE) Discharge Medications: New nicotine (polacrilex) 2 mg Gum 4 mg buccal Q2H PRN (Reason: Nicotine Cravings) Qty: 60 0RF olanzapine 5 mg Tablet 5 mg PO BEDTIME Qty: 30 0RF valacyclovir 500 mg Tablet 500 mg PO DAILY Qty: 30 0RF carbamazepine 200 mg Tablet 200 mg PO BID Qty: 60 0RF Deep Sea Nasal 0.65 % Aerosol,[place]isman 1 spray intranasal Q4H PRN (Reason: dry nostrils) Qty: 20 0RF Continued lamotrigine 200 mg tablet 1 tab PO BID Qty: 30 0RF meclizine 25 mg tablet 1 - 2 tab PO TID PRN (Reason: Dizziness Or Vertigo) Qty: 60 0RF Discontinued lithium carbonate 300 mg tablet extended release 2 tab PO BID 0RF clonazepam 0.5 mg tablet 1 tab PO BID PRN (Reason: Anxiety) 0RF risperidone 1 mg tablet 1 tab PO BEDTIME 0RF topiramate 100 mg tablet 150 mg PO BID 0RF Discharge Orders: Discharge Order (Routine); Ordered 06/16/21 Ordered By: Roopa Clemons Diet: advance to usual diet Activity on Discharge: As tolerated Stand Alone Forms: Patient Portal Discharge page, Community Support Care Plan Goals: Mood Stabilization Health Concerns: Bipolar Disorder Vertigo- Three messages have been left for your PCP, Rob Suarez [phone] without return call for follow up MRI instructions.. Please continue to attempt to reach your provider to discuss further care planning. Plan of Treatment: Attend all follow up appointments Take medications as directed As we discussed, make contact with your [facility] team to discuss further care planning and possible neurology second opinion regarding your MRI results of 05/27/21. Crisis Services [phone] Call/Return as needed Assessment: non-suicidal, non-psychotic, mood is stable. Discharge Date/Time: 06/16/21 13:30
[2021-06-16] MEDS: Meclizine HCl 25 MG TABLET PO (10:34)
== END 2021-06-16 13:30 | disposition home or self-care (01) | DRG 885 ==
LOC: HO.ED 06-08 13:53 → HO.PM5 06-08 16:19
PROVIDERS: Clinical Nurse Specialist Psychiatric/Mental Health, Adult; Nurse Practitioner Family; Admitting Provider Psychiatry & Neurology Psychiatry; Emergency Provider Internal Medicine; Visit Provider Social Worker
DX: F31.4 Bipolar disorder, current episode depressed, severe, without psychotic features (principal); R45.851 Suicidal ideations; Z20.822 Contact with and (suspected) exposure to COVID-19; Z79.899 Other long term (current) drug therapy
CPT/HCPCS: 36415; 80053; 80061; 80156; 80178; 80307; 81003; 81025; 82077; 83036; 84443; 85025; 87635; 93005; 99285

== ENCOUNTER 2021-06-17 12:22 | Emergency (ER) | payer OTHER, MEDICARE, SELFPAY ==
--- NOTE | ~2021-06-17 | CT_ITS ---
CT HEAD WITHOUT IV CONTRAST CT CERVICAL SPINE WITHOUT IV CONTRAST CT MAXILLOFACIAL WITHOUT IV CONTRAST INDICATION: Fall with dizziness. COMPARISON: None available. TECHNIQUE: Multidetector CT acquisitions of the head, maxillofacial region, and cervical spine were obtained without IV contrast. Multiplanar reformats were acquired and utilized for image interpretation. This CT examination was performed using dose optimization techniques as appropriate, variously including the following: *Automated exposure control *Adjustment of mA and/or kV according to patient size (this includes techniques or standardized protocols for targeted exams where dose is matched to indication/reason for exam; i.e. extremities or head) *Use of iterative reconstruction technique FINDINGS: HEAD: There is no intracranial hemorrhage, hydrocephalus, extra-axial surface collection, midline shift, or other herniation pattern. [place] to white matter differentiation is diffusely maintained without evidence of an evolved acute territorial infarct. The basilar cisterns are preserved. No significant soft tissue abnormality. No acute osseous abnormality. The paranasal sinuses and the mastoid air cells are well aerated. MAXILLOFACIAL: No acute maxillofacial fractures. There is a laceration just beneath the left mandible. Associated soft tissue swelling and mild subcutaneous gas. CERVICAL SPINE: Straightening of the cervical lordosis. The vertebral body heights are maintained. The disc volumes are preserved. There are no acute fractures and there are no acute subluxations. Craniocervical junction is unremarkable. CT/CT facial bones wo con IMPRESSION: No acute intracranial findings. There is a laceration just beneath the left mandible. No acute maxillofacial fractures. No acute osseous findings within the cervical spine.
--- NOTE | ~2021-06-17 | CT_ITS ---
CT HEAD WITHOUT IV CONTRAST CT CERVICAL SPINE WITHOUT IV CONTRAST CT MAXILLOFACIAL WITHOUT IV CONTRAST INDICATION: Fall with dizziness. COMPARISON: None available. TECHNIQUE: Multidetector CT acquisitions of the head, maxillofacial region, and cervical spine were obtained without IV contrast. Multiplanar reformats were acquired and utilized for image interpretation. This CT examination was performed using dose optimization techniques as appropriate, variously including the following: *Automated exposure control *Adjustment of mA and/or kV according to patient size (this includes techniques or standardized protocols for targeted exams where dose is matched to indication/reason for exam; i.e. extremities or head) *Use of iterative reconstruction technique FINDINGS: HEAD: There is no intracranial hemorrhage, hydrocephalus, extra-axial surface collection, midline shift, or other herniation pattern. Gonzales to white matter differentiation is diffusely maintained without evidence of an evolved acute territorial infarct. The basilar cisterns are preserved. No significant soft tissue abnormality. No acute osseous abnormality. The paranasal sinuses and the mastoid air cells are well aerated. MAXILLOFACIAL: No acute maxillofacial fractures. There is a laceration just beneath the left mandible. Associated soft tissue swelling and mild subcutaneous gas. CERVICAL SPINE: Straightening of the cervical lordosis. The vertebral body heights are maintained. The disc volumes are preserved. There are no acute fractures and there are no acute subluxations. Craniocervical junction is unremarkable. CT/CT cervical spine wo con IMPRESSION: No acute intracranial findings. There is a laceration just beneath the left mandible. No acute maxillofacial fractures. No acute osseous findings within the cervical spine.
--- NOTE | ~2021-06-17 | CT_ITS ---
CT HEAD WITHOUT IV CONTRAST CT CERVICAL SPINE WITHOUT IV CONTRAST CT MAXILLOFACIAL WITHOUT IV CONTRAST INDICATION: Fall with dizziness. COMPARISON: None available. TECHNIQUE: Multidetector CT acquisitions of the head, maxillofacial region, and cervical spine were obtained without IV contrast. Multiplanar reformats were acquired and utilized for image interpretation. This CT examination was performed using dose optimization techniques as appropriate, variously including the following: *Automated exposure control *Adjustment of mA and/or kV according to patient size (this includes techniques or standardized protocols for targeted exams where dose is matched to indication/reason for exam; i.e. extremities or head) *Use of iterative reconstruction technique FINDINGS: HEAD: There is no intracranial hemorrhage, hydrocephalus, extra-axial surface collection, midline shift, or other herniation pattern. [place] to white matter differentiation is diffusely maintained without evidence of an evolved acute territorial infarct. The basilar cisterns are preserved. No significant soft tissue abnormality. No acute osseous abnormality. The paranasal sinuses and the mastoid air cells are well aerated. MAXILLOFACIAL: No acute maxillofacial fractures. There is a laceration just beneath the left mandible. Associated soft tissue swelling and mild subcutaneous gas. CERVICAL SPINE: Straightening of the cervical lordosis. The vertebral body heights are maintained. The disc volumes are preserved. There are no acute fractures and there are no acute subluxations. Craniocervical junction is unremarkable. CT/CT head/brain wo con IMPRESSION: No acute intracranial findings. There is a laceration just beneath the left mandible. No acute maxillofacial fractures. No acute osseous findings within the cervical spine.
[2021-06-17 13:07] VITALS: BP 162/88; PULSE 118; RESP 17; TEMP 35.8; O2SAT 98; BMI 28.3
--- NOTE | 2021-06-17 13:18 | ECG_ITS ---
Test Reason : DIZZINESS/FALL Blood Pressure : / mmHG Vent. Rate : 103 BPM Atrial Rate : 103 BPM P-R Int : 176 ms QRS Dur : 090 ms QT Int : 372 ms P-R-T Axes : 052 036 035 degrees QTc Int : 487 ms Sinus tachycardia T wave abnormality, consider lateral ischemia Abnormal ECG When compared with ECG of 09-JUN-2021 14:08, No significant change was found Referred By: Generic ED Physician Electronically Signed By:SHIRA TINEO MD
[2021-06-17 13:27] LABS: MANUAL DIFF FLAG NO
[2021-06-17] MEDS: Ondansetron ODT 4 MG TAB.RAPDIS TRANSLINGU (13:28)
[2021-06-17 13:33] LABS: Basophils Absolute Auto 0.1 X10*3/uL (0.0-0.2); Basophils Percent Auto 0.6 % (0-2); Eosinophils Absolute Auto 0.1 X10*3/uL (0.0-0.4); Eosinophils Percent Auto 0.8 % (0-4); Hematocrit 41.3 % (37.0-47.0); Hemoglobin 13.1 g/dl (12.0-16.0); Imm Gran Abs Auto 0.04 X10*3/uL (0.00-0.03); Imm Gran Pct Auto 0.4 % (0.0-0.4); Lymphocytes Absolute Auto 1.8 X10*3/uL (1.2-4.9); Lymphocytes Percent Auto 16.1 % (20-40); Mean Corpuscular HGB Conc 31.7 g/dl (31.0-35.0); Mean Corpuscular Hemoglobin 28.1 pg (27.0-33.0); Mean Corpuscular Volume 88.6 fL (80.0-98.0); Mean Platelet Volume 10.1 fL (9.4-12.3); Monocytes Absolute Auto 0.5 X10*3/uL (0.1-1.2); Monocytes Percent Auto 4.7 % (2-11); Neutrophils Absolute Auto 8.6 x10*3/uL (2.0-8.3); Neutrophils Percent Auto 77.4 % (45-73); Platelet Count 330 X10*3/uL (160-400); Red Blood Count 4.66 X10*6/uL (4.20-5.50); White Blood Count 11.1 X10*3/uL (4.8-10.8)
[2021-06-17 13:46] LABS: Alanine Aminotransferase 12 U/L (0-31); Alkaline Phosphatase 72 U/L (39-117); Anion Gap 13 (12-20); Aspartate Amino Transferase 17 U/L (5-31); Bilirubin Total 0.2 mg/dL (0.0-1.0); Blood Urea Nitrogen 10 mg/dL (9-16); Calcium 9.2 mg/dL (8.4-10.2); Carbon Dioxide 22 mmol/L (22-29); Chloride 107 mmol/L (96-108); Creatinine Clr Calc Pharmacy 78.8; Estimated Glomerular Filt Rate > 60; Glucose Random 150 mg/dL (60-115); Lipase 24 U/L (8-78); Potassium 4.2 mmol/L (3.3-5.1); Sodium 138 mmol/L (135-145); Total Protein 6.7 g/dL (6.5-8.0)
[2021-06-17 16:00] VITALS: BP 110/71; PULSE 76; RESP 18; TEMP 36.8; O2SAT 99
--- NOTE | 2021-06-17 16:26 | ED.FALL ---
HPI - Fall General Chief Complaint: Fall Stated Complaint: Fall/Vomiting/[place]in [place] Source: patient Mode of arrival: ambulatory Limitations: no limitations History of Present Illness HPI Narrative: 45-year-old female presents with injury sustained from a fall. Patient stated that she missed her step, fell on her face, landed on her chin and has a laceration. States that she felt dizzy prior to the fall, has been dizzy since August. Patient is complaining of headache and facial pain at this time. MD complaint: fall Onset (ago): hour(s) (Within the hour of arrival) Fall from: standing Place fall occurred: home Loss of consciousness: none Prolonged down time: no Symptoms prior to fall: dizziness Context: tripped/slipped Location of injury: face Severity: moderate Severity scale (1-10): 6 Quality: aching Related Data Previous Rx's Medication Instructions Recorded carbamazepine 200 mg tablet 200 mg PO BID #60 tab 06/15/21 lamotrigine 200 mg tablet 1 tab PO BID #30 tab 06/15/21 meclizine 25 mg tablet 1 - 2 tab PO TID PRN #60 tab 06/15/21 nicotine (polacrilex) 2 mg gum 4 mg BUCCAL Q2H PRN #60 ea 06/15/21 olanzapine 5 mg tablet 5 mg PO BEDTIME #30 tab 06/15/21 sodium chloride 0.65 % nasal spray 1 spray INTRANASAL Q4H PRN #20 ml 06/15/21 aerosol (Deep Sea Nasal) valacyclovir 500 mg tablet 500 mg PO DAILY #30 tab 06/15/21 Allergies Allergy/AdvReac Type Severity Reaction Status Date / Time No Known Allergies Allergy Verified 06/07/21 16:53 Review of Systems Review of Systems: Constitutional: No Fever, No Chills ENT/Mouth: No Ear Pain, No Hoarseness, No sore throat Eyes: No Eye Pain, No Swelling, No Redness, No Foreign Body Cardiovascular: No Chest Pain, No SOB Respiratory: No Cough, No Dyspnea Gastrointestinal: No Nausea, No Vomiting, No Diarrhea, No abdominal Pain Genitourinary: No Dysuria, No Hematuria Musculoskeletal: positive neck and facial pain, No Myalgias, No Joint Swelling Skin: Positive chin laceration, No rash Neuro: No Weakness, No Numbness, No Paresthesias, No Loss of Consciousness, positive Dizziness, No Headache Psych: No Anxiety/Panic, No Depression Heme/Lymph: no easy bruising, no Lymphadenopathy Endocrine: No Polyuria, No Polydipsia Yes all other systems are reviewed and are negative [facility] Past Medical History Attestation statement: The following information was validated with the patient. Source: old records reviewed Medical History Bipolar 1 disorder Social History Social History Household Members: Family and Other Household Members Other:: Pt lives with her grandmother Housing: House Do you presently have visiting nurse or other home services: No Patient Tobacco Use Status: Never used Tobacco Advance Directives: No Advance Directives Information Provided: No service: No Sexual orientation: Straight/Heterosexual Physical Exam Vital Signs: Vital Signs: Last Vital Signs Temp 98.3 F 06/17/21 19:43 Pulse 71 06/17/21 19:43 Resp 18 06/17/21 19:43 BP 119/73 06/17/21 19:43 Pulse Ox 97 06/17/21 19:43 BMI result Body Mass Index 28.3 Appearance: Alert. Oriented X3. No acute distress. Eyes: Pupils equal, round and reactive to light. Sclera nonicteric. EOMI. ENT: Pharynx normal. 2 cm laceration to mentum. Bruising noted surrounding laceration. Neck: Normal inspection. Neck supple. No vertebral tenderness or step-offs noted. CVS: Normal heart rate and rhythm. Apical pulse pulses to extremities. Respiratory: No respiratory distress. Breath sounds normal. Abdomen: Soft and nontender. Skin: Skin warm and dry. Normal skin color. Normal skin turgor. Extremities: No lower extremity edema. Moves all extremities against resistance. Gait well-balanced well coordinated. Neuro: No motor deficit. No sensory deficit. Cranial nerves 2-12 intact. Course Course Course Narrative: 45-year-old female presents with laceration to her mentum after a fall down some stairs. Patient stated that she did not lose consciousness, but was dizzy when she fell. 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 Will order CT scan of head, neck and facial bones. Laceration repaired. Irrigated with copious amounts of normal saline. Betadine cleanse. Patient tolerated procedure well. Refer to procedure note details CT scan negative for acute findings requiring emergent intervention. Will discharge home with concussion protocol. Patient verbalized understanding of and agrees to plan of care to discharge home. Verbalized understanding of signs and symptoms indicating need for emergent intervention Procedures Laceration Laceration 1: Site: face Size (cm): 2 Description: linear Depth: simple, single layer Local Anesthetic: lidocaine 2% Amount of anesthesia used (mL): 5 Pre-repair: wound explored, irrigated extensively and deep structures intact Skin layer closed with: nylon Size (cm): 5-0 Number of sutures: 5 Technique: simple, interrupted MDM - Fall Differential Diagnosis Differential diagnosis: Likely dislocation, fracture, compression fracture and concussion without loss of consciousness Medical Records Attestation: I reviewed the patient's medical records. Lab Data Attestation: I reviewed the patient's lab results. Result diagrams: 06/17/21 13:23 06/17/21 13:23 Labs: Lab Results 06/17/21 06/17/21 06/17/21 Range/Units 13:23 13:23 16:46 WBC 11.1 H (4.8-10.8) X10*3/uL RBC 4.66 (4.20-5.50) X10*6/uL Hgb 13.1 (12.0-16.0) g/dl Hct 41.3 (37.0-47.0) % MCV 88.6 (80.0-98.0) fL MCH 28.1 (27.0-33.0) pg MCHC 31.7 (31.0-35.0) g/dl RDW 13.0 (11.0-16.0) % Plt Count 330 (160-400) X10*3/uL MPV 10.1 (9.4-12.3) fL Immature Gran % (Auto) 0.4 (0.0-0.4) % Neut % (Auto) 77.4 H (45-73) % Lymph % (Auto) 16.1 L (20-40) % [place] % (Auto) 4.7 (2-11) % Eos % (Auto) 0.8 (0-4) % Baso % (Auto) 0.6 (0-2) % Lymph # (Auto) 1.8 (1.2-4.9) X10*3/uL [place] # (Auto) 0.5 (0.1-1.2) X10*3/uL Eos # (Auto) 0.1 (0.0-0.4) X10*3/uL Baso # (Auto) 0.1 (0.0-0.2) X10*3/uL Abs Immat Gran (auto) 0.04 H (0.00-0.03) X10*3/uL Absolute Neuts (auto) 8.6 H (2.0-8.3) x10*3/uL Absolute Nucleated RBC 0.000 (0.0-0.012) X10*3/uL Nucleated RBC % (auto) 0.0 (0.0-0.2) /100WBC Sodium 138 (135-145) mmol/L Potassium 4.2 (3.3-5.1) mmol/L Chloride 107 (96-108) mmol/L Carbon Dioxide 22 (22-29) mmol/L Anion Gap 13 (12-20) BUN 10 (9-16) mg/dL Creatinine 0.81 (0.5-1.4) mg/dL Estim Creat Clear Calc 78.8 Estimated GFR > 60 Random Glucose 150 H (60-115) mg/dL Calcium 9.2 (8.4-10.2) mg/dL Total Bilirubin 0.2 (0.0-1.0) mg/dL AST 17 (5-31) U/L ALT 12 (0-31) U/L Alkaline Phosphatase 72 (39-117) U/L Total Protein 6.7 (6.5-8.0) g/dL Albumin 4.0 (3.5-5.0) g/dL Lipase 24 (8-78) U/L Urine Color YELLOW Urine Appearance CLEAR Urine pH 7.0 (5.0-8.0) Ur Specific [place] 1.020 (1.005-1.025) Urine Protein NEG (NEG-TRACE) MG/DL Urine Glucose (UA) NEG (NEG) MG/DL Urine Ketones NEG (NEG) MG/DL Urine Blood NEG (NEG) Urine Nitrite NEG (NEG) Ur Leukocyte Esterase NEG (NEG) Imaging Data CT head, cervical spine, facial bones: Attestation: I personally reviewed and interpreted this imaging study as follows: Radiologist's impression: CT HEAD WITHOUT IV CONTRAST CT CERVICAL SPINE WITHOUT IV CONTRAST CT MAXILLOFACIAL WITHOUT IV CONTRAST INDICATION: Fall with dizziness. COMPARISON: None available. TECHNIQUE: Multidetector CT acquisitions of the head, maxillofacial region, and cervical spine were obtained without IV contrast. Multiplanar reformats were acquired and utilized for image interpretation. This CT examination was performed using dose optimization techniques as appropriate, variously including the following: *Automated exposure control *Adjustment of mA and/or kV according to patient size (this includes techniques or standardized protocols for targeted exams where dose is matched to indication/reason for exam; i.e. extremities or head) *Use of iterative reconstruction technique FINDINGS: HEAD: There is no intracranial hemorrhage, hydrocephalus, extra-axial surface collection, midline shift, or other herniation pattern. Gonzales to white matter differentiation is diffusely maintained without evidence of an evolved acute territorial infarct. The basilar cisterns are preserved. No significant soft tissue abnormality. No acute osseous abnormality. The paranasal sinuses and the mastoid air cells are well aerated. MAXILLOFACIAL: No acute maxillofacial fractures. There is a laceration just beneath the left mandible. Associated soft tissue swelling and mild subcutaneous gas. CERVICAL SPINE: Straightening of the cervical lordosis. The vertebral body heights are maintained. The disc volumes are preserved. There are no acute fractures and there are no acute subluxations. Craniocervical junction is unremarkable. CT/CT facial bones wo con IMPRESSION: No acute intracranial findings. ? There is a laceration just beneath the left mandible. No acute maxillofacial fractures. ? No acute osseous findings within the cervical spine. ECG Data Attestation: I personally reviewed and interpreted this ECG as follows: ECG interpretation date: 06/17/21 ECG interpretation time: 13:10 Prior ECG tracings: available for review Interpretation: Vent. rate 103 BPM FL interval 176 ms QRS duration 90 ms QT/QTc 372/487 ms P-R-T axes 52 36 35 Sinus tachycardia T wave abnormality, consider lateral ischemia Abnormal ECG When compared with ECG of 09-JUN-2021 14:08, No significant change was found Discharge Plan Discharge Clinical Impression: Concussion without loss of consciousness, Facial laceration Patient Disposition: Home, Self-Care Instructions: Care For Your Stitches (ED), Laceration (ED), Concussion (ED), Post Concussion Syndrome (ED) Additional Instructions: You were evaluated for injury sustained from a fall. CT scan of head, neck, and facial bones are negative for acute findings requiring emergent intervention. Your symptoms are consistent with concussion. Please follow-up post concussive protocol. You must follow-up with primary care physician this week. Please have sutures removed in 5-10 days. If you notice any indication of infection please return. We updated your Tdap vaccine today. Thank you for choosing this emergency department for evaluation. Please follow-up with primary care physician as needed. Return to the emergency department for any new, concerning, or worsening symptoms. Prescriptions: No Action nicotine (polacrilex) 2 mg Gum 4 mg buccal Q2H PRN (Reason: Nicotine Cravings) Qty: 60 0RF olanzapine 5 mg Tablet 5 mg PO BEDTIME Qty: 30 0RF valacyclovir 500 mg Tablet 500 mg PO DAILY Qty: 30 0RF carbamazepine 200 mg Tablet 200 mg PO BID Qty: 60 0RF Deep Sea Nasal 0.65 % Aerosol,[place] 1 spray intranasal Q4H PRN (Reason: dry nostrils) Qty: 20 0RF lamotrigine 200 mg tablet 1 tab PO BID Qty: 30 0RF meclizine 25 mg tablet 1 - 2 tab PO TID PRN (Reason: Dizziness Or Vertigo) Qty: 60 0RF Interventions: ED Discharge Assessment Last Done: 06/17/21 21:54 Discharge Date/Time: 06/17/21 21:55
[2021-06-17] MEDS: Diphth,Pertus(ACell),Tet Adult 0.5 ML SYRINGE IM (16:47)
[2021-06-17 17:00] LABS: Appearance Urine CLEAR; Color Urine YELLOW; Glucose Urine UA NEG (NEG); Leukocyte Esterase Urine NEG (NEG); Nitrite Urine NEG (NEG); Urine Blood NEG (NEG); Urine Ketones NEG (NEG); Urine Protein NEG (NEG-TRACE)
[2021-06-17 18:00] VITALS: BP 119/75; PULSE 69; RESP 16; O2SAT 99
[2021-06-17] MEDS: Lidocaine HCl 2 % MPF 5 ML VIAL SUBCUT (18:44)
[2021-06-17 19:43] VITALS: BP 119/73; PULSE 71; RESP 18; TEMP 36.8; O2SAT 97
--- NOTE | 2021-06-19 12:20 | P.PNPSO_ITS ---
Subjective Subjective Date of Service: 06/19/21 Reason For Visit: Fall/Vomiting/[place]in [place] Interim History: Golf Course Equipment Operator on-call and patient call this weekend and complained of dizziness and new onset rash on right arm from elbow to knuckles. Golf Course Equipment Operator spoke with patient: Regarding rash: Patient said that the rash has red spots and she 1st noticed it this past Saturday 06/17 when she came to the emergency room after a fall. She reports telling the emergency room provider however they did not comment on it. Patient said the rash has not spread all. It is not rough or raised. She says it does not itch, it does not hurt and there is no exfoliation or sloughing off when she rubs it. She denies that the rashes anywhere else on her body including her anus, genital area, mouth or face. Patient also denies a sore throat, fatigue, cough or burning eyes. Patient has been on Lamictal 200 mg for years and it was recently increased to 200 mg b.i.d.. She was also started on Tegretol which was dosed at 200 mg b.i.d. patient reports that she is in a good mood, denies depression, denies any SI, says she is sleeping well denies any manic behaviors at all. She is scheduled to see her psychiatric provider this Wednesday 06/21 and then her primary care doctor on Thursday 06/22. Regarding dizziness: Patient says that she has chronic dizziness for over year and was started on meclizine which she does not think is at helpful. She said that the dizziness worsened with the change in medications and seems to be the worst about an hour after she takes her morning dose. Pt was psychiatrically admitted on 06/09/21 and discharged on 06/16/21 [place] and Topimax discontinued Lamictial increased from 200mg daily to 200mg BID Tegretol started and dosed at 200mg BID Started on Zyprexa Impression/Plan: pt has hx of Bipolar type I and is currently stable (reports good mood, no manic symptoms, sleeping well). From patient's report, rash is stable and does not sound from her description to have any elements of Jam. Golf Course Equipment Operator thoroughly discussed the risks/side effects of Lamictal and Tegretol regarding both dizziness and rash, including Denis Ortiz's with which patient is already familiar. Patient understands the risks/side effects and agrees with software writer and feels confident t hat she can manage writers recommendation that she reduce Lamictal to 200 mg daily and reduce Tegretol to 200 mg daily (reducing both medications by 200 mg) to see if this resolves patient's side effect complaints. Patient agrees that if there is any change at all in the rash, other than its resolution, patient will immediately stop taking both Lamictal and Tegretol and immediately present to the emergency room for evaluation. Given patient's bipolar disorder, it is significant that she is stable. She is also going to see her psychiatric provider and primary care physician this coming week. It is low risk that his rash is dangerous and at this time it is reasonable for her to continue on a reduced dose of these medications. Diagnostics Vital Signs (24Hr): BMI result Body Mass Index 28.3 Labs Results: 06/17/21 13:23 06/17/21 13:23 Labs: Laboratory Results - last 48 hr 06/17/21 06/17/21 06/17/21 13:23 13:23 16:46 WBC 11.1 H RBC 4.66 Hgb 13.1 Hct 41.3 MCV 88.6 MCH 28.1 MCHC 31.7 RDW 13.0 Plt Count 330 MPV 10.1 Immature Gran % (Auto) 0.4 Neut % (Auto) 77.4 H Lymph % (Auto) 16.1 L [place] % (Auto) 4.7 Eos % (Auto) 0.8 Baso % (Auto) 0.6 Lymph # (Auto) 1.8 [place] # (Auto) 0.5 Eos # (Auto) 0.1 Baso # (Auto) 0.1 Abs Immat Gran (auto) 0.04 H Absolute Neuts (auto) 8.6 H Absolute Nucleated RBC 0.000 Nucleated RBC % (auto) 0.0 Sodium 138 Potassium 4.2 Chloride 107 Carbon Dioxide 22 Anion Gap 13 BUN 10 Creatinine 0.81 Estim Creat Clear Calc 78.8 Estimated GFR > 60 Random Glucose 150 H Calcium 9.2 Total Bilirubin 0.2 AST 17 ALT 12 Alkaline Phosphatase 72 Total Protein 6.7 Albumin 4.0 Lipase 24 Urine Color YELLOW Urine Appearance CLEAR Urine pH 7.0 Ur Specific [place] 1.020 Urine Protein NEG Urine Glucose (UA) NEG Urine Ketones NEG Urine Blood NEG Urine Nitrite NEG Ur Leukocyte Esterase NEG Imaging Radiology Impressions: ITS Impressions Cervical Spine CT 06/17/21 18:02 IMPRESSION: No acute intracranial findings. There is a laceration just beneath the left mandible. No acute maxillofacial fractures. No acute osseous findings within the cervical spine. Face CT 06/17/21 19:18 IMPRESSION: No acute intracranial findings. There is a laceration just beneath the left mandible. No acute maxillofacial fractures. No acute osseous findings within the cervical spine. Head CT 06/17/21 19:18 IMPRESSION: No acute intracranial findings. There is a laceration just beneath the left mandible. No acute maxillofacial fractures. No acute osseous findings within the cervical spine. Discharge Plan Discharge Clinical Impression: Concussion without loss of consciousness, Facial laceration Patient Disposition: Home, Self-Care Instructions: Care For Your Stitches (ED), Laceration (ED), Concussion (ED), Post Concussion Syndrome (ED) Additional Instructions: You were evaluated for injury sustained from a fall. CT scan of head, neck, and facial bones are negative for acute findings requiring emergent intervention. Your symptoms are consistent with concussion. Please follow-up post concussive protocol. You must follow-up with primary care physician this week. Please have sutures removed in 5-10 days. If you notice any indication of infection please return. We updated your Tdap vaccine today. Thank you for choosing this emergency department for evaluation. Please follow-up with primary care physician as needed. Return to the emergency department for any new, concerning, or worsening symptoms. Prescriptions: No Action nicotine (polacrilex) 2 mg Gum 4 mg buccal Q2H PRN (Reason: Nicotine Cravings) Qty: 60 0RF olanzapine 5 mg Tablet 5 mg PO BEDTIME Qty: 30 0RF valacyclovir 500 mg Tablet 500 mg PO DAILY Qty: 30 0RF carbamazepine 200 mg Tablet 200 mg PO BID Qty: 60 0RF Deep Sea Nasal 0.65 % Aerosol,[place] 1 spray intranasal Q4H PRN (Reason: dry nostrils) Qty: 20 0RF lamotrigine 200 mg tablet 1 tab PO BID Qty: 30 0RF meclizine 25 mg tablet 1 - 2 tab PO TID PRN (Reason: Dizziness Or Vertigo) Qty: 60 0RF Interventions: ED Discharge Assessment Last Done: 06/17/21 21:54 Discharge Date/Time: 06/17/21 21:55 Assessment & Plan I spent minutes with the patient and/or on the patient floor today, greater than?50% of which was spent counseling/coordinating care.
[2021-06-22 10:26] LABS: Lamotrigine Lamictal 5.9 mcg/mL (4.0-18.0)
== END 2021-06-17 21:55 | disposition home or self-care (01) ==
PROVIDERS: Nurse Practitioner Family; Emergency Provider Emergency Medicine; PCP Nurse Practitioner
DX: S06.0X0A Concussion without loss of consciousness, initial encounter (principal); S01.81XA Laceration without foreign body of other part of head, initial encounter; W10.9XXA Fall (on) (from) unspecified stairs and steps, initial encounter; Y93.01 Activity, walking, marching and hiking; Y92.009 Unspecified place in unspecified non-institutional (private) residence as the place of occurrence of the external cause; Y99.9 Unspecified external cause status
CPT/HCPCS: 12011; 36415; 70450; 70486; 72125; 80053; 80175; 81003; 83690; 85025; 90471; 90715; 93005; 99284